=== PATIENT | male | born 1960 | race Caucasian/White ===

== ENCOUNTER 2019-06-28 14:38 | Emergency (ER) | payer BC ==
[2019-06-28 14:47] VITALS: TEMP 98
[2019-06-28] MEDS ORDERED: DIPH,PERTUS(ACELL)TETVAC-LF 0.5 ML VIAL IM ONE (14:48)
[2019-06-28] MEDS ORDERED: WATER FOR IRRIG, STERILE 1,000 ML BTL IRRIGATION ONE (14:53)
--- NOTE | 2019-06-28 15:22 | XR ---
EXAMINATION TYPE: XR finger LT DATE OF EXAM: 06/28/2019 CLINICAL HISTORY: pain TECHNIQUE: 3 views of the third left digit are submitted. COMPARISON: None FINDINGS: No displaced fracture is seen with certainty. Joint spaces are well-preserved. Correlate for soft tissue injury. IMPRESSION: No acute displaced fracture or dislocation.
[2019-06-28] MEDS ORDERED: LIDOCAINE 1% INJ 10MG/ML (20 ML MDV) SQ ONE (16:06)
[2019-06-28] MEDS ORDERED: ACET/COD 300 MG/30 MG STARTER PACK 6 TAB BTL PO STA (16:06)
[2019-06-28] MEDS ORDERED: IBUPROFEN 600 MG TAB PO STA (16:06)
--- NOTE | 2019-06-28 16:28 | ED ---
Animal Bite HPI - General Chief Complaint: Animal Bite Stated Complaint: dog bite on finger Time Seen by Provider: 06/28/19 14:48 Source: patient Mode of arrival: ambulatory Limitations: no limitations - History of Present Illness Initial Comments: 59-year-old male patient presents to the emergency department today for evaluation of dog bite to the left middle finger. Patient states that he was breaking up a fight between his 2 dogs when one bit him. Patient states he is unable to get it to stop bleeding site presented here for further evaluation. He denies any difficulty with range of motion to the finger. Denies numbness or tingling. Denies any other injuries. Denies use of anticoagulants or antiplatelet medications. He is unsure when his last tetanus vaccine was administered. Patient denies any headache, neck pain, back pain, chest pain, shortness of breath, dizziness, weakness, abdominal pain, nausea, vomiting, or difficulties with bowel movements or urination. - Related Data Previous Rx's Medication Instructions Recorded Amoxic-Pot Clav 875-125Mg 1 tab PO Q12HR #14 tablet 06/28/19 [Augmentin 875-125] Allergies Allergy/AdvReac Type Severity Reaction Status Date / Time No Known Allergies Allergy Verified 06/28/19 14:45 Review of Systems ROS Statement: Those systems with pertinent positive or pertinent negative responses have been documented in the HPI. ROS Other: All systems not noted in ROS Statement are negative. Past Medical History Past Medical History: No Reported History History of Any Multi-Drug Resistant Organisms: None Reported Past Surgical History: No Surgical Hx Reported Past Psychological History: No Psychological Hx Reported Smoking Status: Never smoker Past Alcohol Use History: None Reported Past Drug Use History: None Reported General Exam Limitations: no limitations General appearance: alert, in no apparent distress, other (This is a well- developed, well-nourished adult male patient in no acute distress. Vital signs upon presentation are temperature 98.0F, pulse 68, respirations 17, blood pressure 145/88, pulse ox 97% on room air.) Eye exam: Present: normal appearance, PERRL, EOMI. Absent: scleral icterus, conjunctival injection, periorbital swelling ENT exam: Present: normal exam, normal oropharynx, mucous membranes moist Respiratory exam: Present: normal lung sounds bilaterally. Absent: respiratory distress, wheezes, rales, rhonchi, stridor Cardiovascular Exam: Present: regular rate, normal rhythm, normal heart sounds. Absent: systolic murmur, diastolic murmur, rubs, gallop, clicks Extremities exam: Present: full ROM, normal capillary refill, other (3cm laceration to the palmar surface of the left middle finger. Active bleeding noted. There is full range of motion. Skin is otherwise pink, warm, dry. Cap refills less than 3 seconds. Radial pulses 2+ and equal bilaterally.). Absent: tenderness, pedal edema, joint swelling, calf tenderness Neurological exam: Present: alert, oriented X3, CN II-XII intact Psychiatric exam: Present: normal affect, normal mood Skin exam: Present: warm, dry, intact, normal color. Absent: rash Course Vital Signs 06/28/19 06/28/19 14:42 16:58 Temperature 98.0 F Pulse Rate 68 56 L Respiratory 17 18 Rate Blood Pressure 145/88 155/90 O2 Sat by Pulse 97 98 Oximetry Procedures - Laceration Laceration #1 Consent Obtained: verbal consent Indication: laceration Site: hand (Left middle finger) Size (cm): 3 Description: linear Depth: simple, single layer Anesthetic Used: lidocaine 1% Anesthesia Technique: local infiltration Amount (mls): 3 Pre-repair: irrigated extensively Type of Sutures: nylon Size of Sutures: 5-0 Number of Sutures: 3 Technique: simple, interrupted (Loosely approximated) Patient Tolerated Procedure: well, no complications Medical Decision Making - Medical Decision Making 59-year-old male patient presented to the emergency department today for evaluation of laceration to the left middle finger. This is caused from a dog bite. States his doctor up-to-date on her immunizations. Patient had good range of motion and good neurovascular status. Laceration was repaired, 3 loose sutures for approximation purposes are placed. We did start Augmentin. Updated his tetanus shot. X-ray showed no foreign body or fracture. He'll be discharged to follow-up with his primary care physician for recheck in 1-2 days. He is instructed to return in 7 days have the stitches removed. Return parameters were discussed in detail. He verbalizes understanding and agrees with this plan. - Radiology Data Radiology results: report reviewed, image reviewed X-ray of the left middle finger was obtained. Report was reviewed in its entirety. Impression by Dr. Fregoli shows no acute displaced fracture or dislocation. Disposition Clinical Impression: Dog bite of finger Disposition: HOME SELF-CARE Condition: Good Instructions (If sedation given, give patient instructions): Animal Bite (ED) Additional Instructions: Return in 7 days to have the stitches removed. Complete antibiotic prescription in full. Follow up with your primary care physician for recheck in 1-2 days. Return to the emergency department for any new, worsening, or concerning symptoms. Prescriptions: Amoxic-Pot Clav 875-125Mg [Augmentin 875-125] 1 tab PO Q12HR #14 tablet Is patient prescribed a controlled substance at d/c from ED?: No Referrals: None,Stated [Primary Care Provider] - 1-2 days
[2019-06-28 17:00] VITALS: BP 155/90; PULSE 56; RESP 18
== END 2019-06-28 16:58 | disposition home or self-care (01) ==
LOC: EC 14:38
DX: S61.253A Open bite of left middle finger without damage to nail, initial encounter (principal); S61.213A Laceration without foreign body of left middle finger without damage to nail, initial encounter; Z23 Encounter for immunization; W54.0XXA Bitten by dog, initial encounter; Y93.89 Activity, other specified
CPT/HCPCS: 73140; 90715; 90471; 99283; 12002; J2001

== ENCOUNTER 2019-10-24 13:51 | Emergency (ER) | payer BC, OTHER ==
[2019-10-24 14:14] VITALS: RESP 18
--- NOTE | 2019-10-24 14:25 | ED ---
General Adult HPI <Josue Hays P - Last Filed: 10/24/19 16:30> - General Source: patient, EMS, RN notes reviewed, old records reviewed Mode of arrival: EMS Limitations: no limitations <Dario Jon - Last Filed: 10/24/19 16:59> - General Chief complaint: Head Injury Stated complaint: IHS-head injury - History of Present Illness Initial comments: This is a 59-year-old male who states he was working on a semitruck tire when it blew up in his face. Patient states his glasses got pushed back into his head and he has a laceration just above his nose on his forehead almost center but a little to the right. Patient has 3 and half centimeter laceration. Patient states he did not lose consciousness he was not days. Patient denies any neck pain. Patient denies any other injury besides cut his face however he has some swelling to the left eyelid. Patient denies any pain in his eye patient denies any blurred vision. (Dario Jon) - Related Data Home Medications Medication Instructions Recorded Confirmed No Known Home Medications 10/24/19 10/24/19 Allergies Allergy/AdvReac Type Severity Reaction Status Date / Time No Known Allergies Allergy Verified 10/24/19 16:18 Review of Systems ROS Other: All systems not noted in ROS Statement are negative. <Jsoue Hays P - Last Filed: 10/24/19 16:30> ROS Other: All systems not noted in ROS Statement are negative. <Dario Jon - Last Filed: 10/24/19 16:59> ROS Statement: Those systems with pertinent positive or pertinent negative responses have been documented in the HPI. Past Medical History Past Medical History: No Reported History History of Any Multi-Drug Resistant Organisms: None Reported Past Surgical History: No Surgical Hx Reported Past Psychological History: No Psychological Hx Reported Smoking Status: Never smoker Past Alcohol Use History: None Reported Past Drug Use History: None Reported <Dario Jon - Last Filed: 10/24/19 16:59> General Exam Limitations: no limitations <Dario Jon - Last Filed: 10/24/19 16:59> - General Exam Comments Initial Comments: GENERAL: Patient is well-developed and well-nourished. Patient is nontoxic and well- hydrated and is in mild distress. ENT: Neck is soft and supple. No significant lymphadenopathy is noted. Oropharynx is clear. Moist mucous membranes. Neck has full range of motion without eliciting any pain. EYES: The sclera were anicteric and conjunctiva were pink and moist. Extraocular movements were intact and pupils were equal left pupil slightly larger than the right and sluggishly reactive. There is also conjunctival injection in the left eye.. Eyelids were unremarkable. PULMONARY: Unlabored respirations. Good breath sounds bilaterally. No audible rales rhonchi or wheezing was noted. CARDIOVASCULAR: There is a regular rate and rhythm without any murmurs gallops or rubs. ABDOMEN: Soft and nontender with normal bowel sounds. No palpable organomegaly was noted. There is no palpable pulsatile mass. SKIN: Patient has horizontal laceration on his forehead just above his nose measuring about 3.5 cm. Patient has some ecchymosis to the left upper eyelid. NEUROLOGIC: Patient is alert and oriented x3. Cranial nerves II through XII are grossly intact. Motor and sensory are also intact. Normal speech, volume and content. Symmetrical smile. MUSCULOSKELETAL: Normal extremities with adequate strength and full range of motion. No lower extremity swelling or edema. No calf tenderness. LYMPHATICS: No significant lymphadenopathy is noted PSYCHIATRIC: Normal psychiatric evaluation. (Dario Jon) Course Vital Signs 10/24/19 10/24/19 14:01 16:00 Temperature 98.2 F Pulse Rate 68 51 L Respiratory 18 18 Rate Blood Pressure 137/79 141/85 O2 Sat by Pulse 97 94 L Oximetry Procedures - Laceration Laceration #1 Consent Obtained: verbal consent Indication: laceration Site: face Size (cm): 4 Description: irregular Anesthetic Used: lidocaine 1% Anesthesia Technique: local infiltration Amount (mls): 4 Pre-repair: wound explored, irrigated extensively (with saline pressure irrigation), deep structures intact Type of Sutures: nylon Size of Sutures: 5-0 Number of Sutures: 7 Technique: simple, interrupted Patient Tolerated Procedure: well, no complications <Josue Hays - Last Filed: 10/24/19 16:30> Medical Decision Making <Dario Jon - Last Filed: 10/24/19 16:59> - Medical Decision Making CT of the head and neck showed no acute abnormality. CT of the orbit showed no acute abnormality. Patient still had slightly sluggish light reflex in the left I spoke with ophthalmology Dr. Brooks and he agreed to see the patient 9:00 in the morning and patient agreed to see him. Patient at this point has no eye pain he has no visual complaints (Dario Jon) Disposition <Josue Hays - Last Filed: 10/24/19 16:30> Is patient prescribed a controlled substance at d/c from ED?: No Time of Disposition: 16:40 <Dario Jon - Last Filed: 10/24/19 16:59> Clinical Impression: Forehead laceration, Eye trauma Disposition: HOME SELF-CARE Condition: Good Instructions (If sedation given, give patient instructions): Laceration (ED) Additional Instructions: Patient should follow-up with Dr. Brooks at 9 AM in the morning Referrals: None,Stated [Primary Care Provider] - 1-2 days
--- NOTE | 2019-10-24 15:50 | CT ---
EXAMINATION TYPE: CT brain cspine wo con, CT orbits wo con DATE OF EXAM: 10/24/2019 COMPARISON: NONE HISTORY: Traumatic injury with left eye pain, headache, and neck pain. CT DLP: 1500 mGycm. Automated Exposure Control for Dose Reduction was Utilized. TECHNIQUE: CT scan of the head, orbits, and cervical spine are all performed without contrast. FINDINGS: There is no acute intracranial hemorrhage or midline shift identified. Mild symmetric solomon ateral frontal lobe atrophy. No hydrocephalus. Garcia-white matter differentiation is maintained. The c alvarium is intact. There is mild to moderate asymmetric left-sided preseptal fluid or hematoma extending superiorly over the supraorbital region and anteriorly towards the midline. Orbital floors and hutchison are intact. The globes are intact bilaterally. Intraconal fat is preserved. Inferior extension over the left maxilla ry sinus anterior wall was noted. No acute displaced facial bone fracture clearly seen. There is acute on chronic paranasal sinus disea se with areas of mucosal thickening bilateral sphenoid ethmoid and frontal sinuses and patchy opacifi cation along with dependent fluid bilateral ethmoid and inferior frontal sinuses with relative sparin g of the bilateral maxillary sinuses. Cervical spine is visualized in its entirety from C1 through upper thoracic levels and demonstrates s light grade 1 retrolisthesis C5 on C6 without evidence of acute fracture or dislocation. Prevertebra l soft tissue appears within normal limits. The C1-C2 articulation is within normal limits on the co bernard images. Mild to moderate disc space narrowing and anterior spurring C5-C6 level. Mild disc spa ce narrowing C6-C7 level. Prominent anterior spur C7-T1 level. Spinal canal grossly preserved. Axial images show normal-sized thyroid and lung apices clear without pneumothorax. IMPRESSION: 1. There is no acute fracture or dislocation evident in the cervical spine. 2. No acute intracranial hemorrhage or midline shift is seen. 3. Small to moderate preseptal hematoma without orbital fracture or postseptal involvement. 4. Incidental acute on chronic paranasal sinus disease.
[2019-10-24] MEDS ORDERED: LIDOCAINE 1% INJ 10MG/ML (20 ML MDV) SQ ONE (16:08)
[2019-10-24 17:25] VITALS: BP 148/92; PULSE 77; TEMP 98
== END 2019-10-24 17:25 | disposition home or self-care (01) ==
LOC: EC 13:51
DX: S01.81XA Laceration without foreign body of other part of head, initial encounter (principal); W22.8XXA Striking against or struck by other objects, initial encounter; Y92.69 Other specified industrial and construction area as the place of occurrence of the external cause; Y99.0 Civilian activity done for income or pay
CPT/HCPCS: 72125; 70450; 70480; 99284; 12013; J2001

== ENCOUNTER 2020-06-21 13:37 | Emergency (ER) | payer OTHER ==
--- NOTE | 2020-06-21 14:16 | ED ---
Lower Extremity Injury HPI - General Source: RN notes reviewed Limitations: no limitations <Lexx Dow - Last Filed: 06/21/20 14:15> <Wilfredo Boo - Last Filed: 06/21/20 16:21> - General Stated Complaint: IHS-leg injury Time Seen by Provider: 06/21/20 14:12 - History of Present Illness Initial Comments: This is a 60-year-old male presents emergency Department chief complaint of left leg injury. Patient states he was getting out of a truck states that he hit his solo on the rocker panel of truck. Patient states that he is seen at initial ulcer secondary to increased swelling. Patient was sent over here to rule out compartment syndrome. He states she's not in extreme pain, states it is only area swelling at the site of injury. Denies any paresthesias. No discoloration. (Lexx Dow) Patient sent to the emergency department after injured the left leg. He was struck in the leg. He has no paresthesias. He has no weakness. He has no lightheadedness. He has no trouble walking. He denies any other injuries. He has very minor pain. He states the swelling is already going down. He has taken no pain medicine prior to arrival. (Wilfredo Boo) - Related Data Home Medications Medication Instructions Recorded Confirmed No Known Home Medications 10/24/19 10/24/19 Allergies Allergy/AdvReac Type Severity Reaction Status Date / Time No Known Allergies Allergy Verified 06/21/20 14:17 Review of Systems ROS Other: All systems not noted in ROS Statement are negative. <Lexx Dow - Last Filed: 06/21/20 14:15> ROS Other: All systems not noted in ROS Statement are negative. <Wilfredo Boo - Last Filed: 06/21/20 16:21> ROS Statement: Those systems with pertinent positive or pertinent negative responses have been documented in the HPI. Past Medical History Past Medical History: No Reported History History of Any Multi-Drug Resistant Organisms: None Reported Past Surgical History: No Surgical Hx Reported Past Psychological History: No Psychological Hx Reported Smoking Status: Never smoker Past Alcohol Use History: None Reported Past Drug Use History: None Reported <Lexx Dow - Last Filed: 06/21/20 14:15> General Exam General appearance: alert, in no apparent distress Head exam: Present: atraumatic, normocephalic, normal inspection Cardiovascular Exam: Present: regular rate, normal rhythm, normal heart sounds. Absent: systolic murmur, diastolic murmur, rubs, gallop, clicks Extremities exam: Present: other (Left lower leg anterior solo there is small abrasion, there is area swelling which appears to be hematoma, This soft nontender, leg is soft nontender except over the area of swelling, neurovascular intact) <Lexx Dwo - Last Filed: 06/21/20 14:15> Limitations: no limitations General appearance: alert, in no apparent distress Head exam: Present: atraumatic, normocephalic, normal inspection Eye exam: Present: normal appearance, PERRL, EOMI. Absent: scleral icterus, conjunctival injection, periorbital swelling ENT exam: Present: normal exam, mucous membranes moist Neck exam: Present: normal inspection. Absent: tenderness, meningismus, lymphadenopathy Respiratory exam: Present: normal lung sounds bilaterally. Absent: respiratory distress, wheezes, rales, rhonchi, stridor Cardiovascular Exam: Present: regular rate, normal rhythm, normal heart sounds. Absent: systolic murmur, diastolic murmur, rubs, gallop, clicks GI/Abdominal exam: Present: soft, normal bowel sounds. Absent: distended, tenderness, guarding, rebound, rigid Extremities exam: Present: normal inspection, full ROM, normal capillary refill. Absent: tenderness, pedal edema, joint swelling, calf tenderness Back exam: Present: normal inspection Neurological exam: Present: alert, oriented X3, CN II-XII intact Psychiatric exam: Present: normal affect, normal mood Skin exam: Present: other (Small abrasion left leg) <Wilfredo Boo - Last Filed: 06/21/20 16:21> Course Vital Signs 06/21/20 14:15 Temperature 97.9 F Pulse Rate 55 L Respiratory 20 Rate Blood Pressure 152/85 O2 Sat by Pulse 96 Oximetry Medical Decision Making <Wilfredo Boo - Last Filed: 06/21/20 16:21> - Medical Decision Making Patient presents with left leg injury. X-rays are negative. He has excellent distal pulses. There is no evidence of arterial deficiency. There is no evidence of venous occlusion. He has no calf swelling or tenderness. There is no evidence to suggest compartment syndrome. Patient is stable for discharge. (Wilfredo Boo) Disposition <Lexx Dow - Last Filed: 06/21/20 14:15> Is patient prescribed a controlled substance at d/c from ED?: No <Wilfredo Boo - Last Filed: 06/21/20 16:21> Clinical Impression: Contusion, Abrasion Disposition: HOME SELF-CARE Condition: Good Instructions (If sedation given, give patient instructions): Abrasion (ED), Contusion in Adults (ED) Referrals: None,Stated [Primary Care Provider] - 1-2 days
--- NOTE | 2020-06-21 15:59 | XR ---
EXAMINATION TYPE: XR tibia fibula LT DATE OF EXAM: 06/21/2020 Comparison: None Clinical History: 60-year-old male injury, mid leg pain Findings: There is some reticulation in the subcutaneous adipose layer of the mid leg. No acute fracture. Impression: Subcutaneous soft tissue swelling noted. No acute fracture seen.
[2020-06-21 16:34] VITALS: BP 152/93; PULSE 57; RESP 18; TEMP 98.5
== END 2020-06-21 16:33 | disposition home or self-care (01) ==
LOC: EC 13:37
DX: S80.12XA Contusion of left lower leg, initial encounter (principal); W22.8XXA Striking against or struck by other objects, initial encounter
CPT/HCPCS: 99283

== ENCOUNTER → 2020-09-30 | Outpatient (CLI) | payer BC ==
--- NOTE | 2020-10-01 15:37 | CTL ---
EXAMINATION TYPE: CT Low Dose Lung DATE OF EXAM ORDERED: 09/30/2020 HISTORY: Personal tobacco use. Lung cancer screening CT DLP: 89.[address] CTDI: 2.7 mGy Automated exposure control for dose reduction was used. SCREENING VISIT: Initial COMPARISON: High-resolution CT chest 04/20/2012 TECHNIQUE: Low dose computed tomography scan was performed through the chest at 1 mm thick sections a nd reconstructed images in the coronal plane at [address] DIAGNOSTIC QUALITY: Satisfactory FINDINGS: LUNG NODULES: None. LUNGS: COPD: Severity: None Fibrosis: Severity: None Lymph nodes: None Other findings: None RIGHT PLEURAL SPACE: Effusion: None Calcification: None Thickening: None Pneumothorax: None LEFT PLEURAL SPACE: Effusion: None Calcification: None Thickening: None Pneumothorax: None HEART: Heart Size: Normal Coronary calcification: Minimal Pericardial effusion: None OTHER FINDINGS: Upper abdomen: Normal Bony thorax: Normal Supraclavicular region: Normal Other: Ascending thoracic aorta at the level the main pulmonary artery measures 3.2 cm. The main pul monary artery at the bifurcation measures 2.6 cm. IMPRESSION: 1. Normal low-dose CT chest FOLLOW UP CT CHEST RECOMMENDATION: Follow-up low-dose CT chest one year CT LUNG RAD: 1
== END | disposition home or self-care (01) ==
LOC: RADCTMAIN 15:02
PROVIDERS: ATTEND Family Medicine
DX: Z09 Encounter for follow-up examination after completed treatment for conditions other than malignant neoplasm (principal); Z87.891 Personal history of nicotine dependence
CPT/HCPCS: 71271

== ENCOUNTER 2020-12-30 06:29 | Day surgery (SDC) | payer BC ==
[2020-12-26 12:13] VITALS: BMI 34.4
[~2020-12-30 06:29] MED LIST: LACTATED RINGERS 1,000 ML IV SCH; LIDOCAINE 1% (10MG/ML) FOR IV START INTRADERMA PRN
[2020-12-30 06:44] VITALS: TEMP 97.8
[2020-12-30] MEDS ORDERED: LACTATED RINGERS 1,000 ML IV ONE (06:44)
[2020-12-30] MEDS ORDERED: PROPOFOL 10 MG/ML 20 ML VIAL IV ONE (07:35)
--- NOTE | 2020-12-30 07:35 | P.GSHP ---
History of Present Illness H&P Date: 12/30/20 CHIEF COMPLAINT: Colon screen HISTORY OF PRESENT ILLNESS: The patient is a 60-year-old male who presents for colon screen. Lower endoscopy was offered for further evaluation and management. PAST MEDICAL HISTORY: Please see list. PAST SURGICAL HISTORY: Please see list. MEDICATIONS: Please see list. ALLERGIES: Please see list. SOCIAL HISTORY: No illicit drug use FAMILY HISTORY: No reports of Crohn disease or ulcerative colitis. REVIEW OF ORGAN SYSTEMS: CONSTITUTIONAL: No reports of fevers or chills. PHYSICAL EXAM: VITAL SIGNS: Stable GENERAL: Well-developed pleasant in no acute distress. HEENT: No scleral icterus. Extraocular movements grossly intact. Moist buccal mucosa. NECK: Supple without lymphadenopathy. CHEST: Unlabored respirations. Equal bilateral excursions. CARDIOVASCULAR: Regular rate and rhythm. Distal 2+ pulses. ABDOMEN: Soft, nontender, nondistended. MUSCULOSKELETAL: No clubbing, cyanosis, or edema. ASSESSMENT: 1. Colon screen. PLAN: 1. Recommend proceeding with a lower endoscopy Past Medical History Past Medical History: No Reported History History of Any Multi-Drug Resistant Organisms: None Reported Past Surgical History: Orthopedic Surgery Additional Past Surgical History / Comment(s): RT HEEL SX AGE 18 Past Anesthesia/Blood Transfusion Reactions: No Reported Reaction Smoking Status: Current every day smoker - Past Family History Sister(s) Family Medical History: Cancer Additional Family Medical History / Comment(s): COLON Mother Family Medical History: Cancer Additional Family Medical History / Comment(s): THROAT Medications and Allergies Home Medications Medication Instructions Recorded Confirmed Type No Known Home Medications 10/24/19 12/26/20 History Allergies Allergy/AdvReac Type Severity Reaction Status Date / Time No Known Allergies Allergy Verified 12/26/20 12:07 Surgical - Exam Vital Signs Temp Pulse Resp BP Pulse Ox 97.8 F 88 18 195/89 96 12/30/20 06:43 12/30/20 06:43 12/30/20 06:43 12/30/20 06:43 12/30/20 06:43
--- NOTE | 2020-12-30 08:13 | P.PCN ---
Date of Procedure: 12/30/20 Description of Procedure: PREOPERATIVE DIAGNOSIS: Family history colon cancer, sister Colonoscopy screening, first POSTOPERATIVE DIAGNOSIS: Family history colon cancer, sister Colonoscopy screening, first Tubular adenoma ascending colon Tubular adenoma transverse colon Tubular adenoma sigmoid colon Internal hemorrhoids, grade 2 OPERATION: Colonoscopy to the ileocecal valve and appendiceal orifice, cecum Colonoscopy with hot snare polypectomy Colonoscopy with cold forceps biopsy SURGEON: Kami Martinez MD. ANESTHESIA: MAC. INDICATIONS: The patient is an 60-year-old male who presents family history of colon cancer in sister. This is his first colonoscopy. Benefits and risks were described an d informed consent was obtained. DESCRIPTION OF PROCEDURE: The patient had undergone Sutab prep. The patient had been brought into the operating room and laid in the left lateral decubitus position. After adequate intravenous sedation, the rectum was examined with 2% lidocaine jelly. The prostate was enlarged. External hemorrhoids were encountered. The rectal tone was within normal limits. No lesions were palpated in the rectal vault. An Olympus colonoscope was advanced until the cecum, ileocecal valve and appendiceal orifice were clearly viewed. The prep was good. No sigmoid diverticulosis was encountered. Colonic polyps were found and removed. No evidence of focal colitis was found. Retroflexion of the scope demonstrated grade 2 internal hemorrhoids without active bleeding or inflammation. The colon was desufflated. The patient had tolerated the procedure well. Withdrawal time was over 6 minutes. FINDINGS: Aronchick preparation quality scale 2 (1-5) Internal hemorrhoids, grade 2 External hemorrhoids, grade 2 Enlarged prostate. No arteriovenous malformations. Removal of 7 polyps: - Snare polypectomy 90 cm from the anal verge x 2, 5 mm to 7 mm tubulovillous adenoma polyp. - Snare polypectomy of distal ascending colon, 8 mm flat villous adenoma polyp with partial resection - Snare polypectomy at distal transverse colon 6 mm - Cold forceps biopsy at 20 cm from the anal verge, 4 mm polyp, sigmoid colon - Cold forceps biopsy at 15 cm x 2 from the anal verge, 3 to 5 mm polyp, sigmoid colon No focal colitis. RECOMMENDATIONS: 1. Given severity of tubular adenomas, recommend repeat colonoscopy 1 year, 2021 2. Recommend follow-up with urology Plan - Discharge Summary Discharge Rx Participant: No New Discharge Prescriptions: No Action No Known Home Medications Discharge Medication List No Known Home Medications 10/24/19 [History] Follow up Appointment(s)/Referral(s): Kami Martinez MD [STAFF PHYSICIAN] - 01/07/21 Patient Instructions/Handouts: Colorectal Polyps (DC) Activity/Diet/Wound Care/Special Instructions: Repeat colonoscopy one year, 2021 Discharge Disposition: HOME SELF-CARE
[2020-12-30 08:24] VITALS: RESP 16
[2020-12-30 08:26] VITALS: BP 146/88; PULSE 54
== END 2020-12-30 08:54 | disposition home or self-care (01) ==
LOC: ORWHC2ENDO 06:29
PROVIDERS: ATTEND Surgery Plastic and Reconstructive Surgery
DX: Z12.11 Encounter for screening for malignant neoplasm of colon (principal); D12.2 Benign neoplasm of ascending colon; D12.3 Benign neoplasm of transverse colon; D12.5 Benign neoplasm of sigmoid colon; F17.200 Nicotine dependence, unspecified, uncomplicated; K64.8 Other hemorrhoids; Z80.0 Family history of malignant neoplasm of digestive organs; G47.30 Sleep apnea, unspecified; Z87.442 Personal history of urinary calculi
CPT/HCPCS: 45380; 45385; 88305; J2704

== ENCOUNTER 2022-01-22 07:33 | Day surgery (SDC) | payer BC ==
[2022-01-20 15:58] VITALS: BMI 35.2
[2022-01-22] MEDS ORDERED: LIDOCAINE 1% (10MG/ML) FOR IV START INTRADERMA PRN (07:43)
[2022-01-22] MEDS ORDERED: LACTATED RINGERS 1,000 ML IV SCH (07:43)
[2022-01-22 07:56] VITALS: RESP 16; TEMP 97.6
--- NOTE | 2022-01-22 08:47 | P.GSHP ---
History of Present Illness H&P Date: 01/22/22 CHIEF COMPLAINT: Colon screen HISTORY OF PRESENT ILLNESS: The patient is a 61-year-old male who presents for colon screen. Lower endoscopy was offered for further evaluation and management. PAST MEDICAL HISTORY: Please see list. PAST SURGICAL HISTORY: Please see list. MEDICATIONS: Please see list. ALLERGIES: Please see list. SOCIAL HISTORY: No illicit drug use FAMILY HISTORY: No reports of Crohn disease or ulcerative colitis. REVIEW OF ORGAN SYSTEMS: CONSTITUTIONAL: No reports of fevers or chills. PHYSICAL EXAM: VITAL SIGNS: Stable GENERAL: Well-developed pleasant in no acute distress. HEENT: No scleral icterus. Extraocular movements grossly intact. Moist buccal mucosa. NECK: Supple without lymphadenopathy. CHEST: Unlabored respirations. Equal bilateral excursions. CARDIOVASCULAR: Regular rate and rhythm. Distal 2+ pulses. ABDOMEN: Soft, nontender, nondistended. MUSCULOSKELETAL: No clubbing, cyanosis, or edema. ASSESSMENT: 1. Colon screen. PLAN: 1. Recommend proceeding with a lower endoscopy Past Medical History Past Medical History: Hypertension Additional Past Medical History / Comment(s): hx colon polyps,bronchitis Dec 2021,steroids Dec 2021 History of Any Multi-Drug Resistant Organisms: None Reported Past Surgical History: Orthopedic Surgery Additional Past Surgical History / Comment(s): RT HEEL SX AGE 18 Past Anesthesia/Blood Transfusion Reactions: No Reported Reaction Smoking Status: Current every day smoker - Past Family History Sister(s) Family Medical History: Cancer Additional Family Medical History / Comment(s): COLON Mother Family Medical History: Cancer Additional Family Medical History / Comment(s): THROAT Medications and Allergies Home Medications Medication Instructions Recorded Confirmed Type Olmesartan Medoxomil 40 mg PO QAM 01/20/22 01/20/22 History Allergies Allergy/AdvReac Type Severity Reaction Status Date / Time No Known Allergies Allergy Verified 01/22/22 07:50 Surgical - Exam Vital Signs Temp Pulse Resp BP Pulse Ox 97.6 F 62 16 127/74 96 01/22/22 07:55 01/22/22 07:55 01/22/22 07:55 01/22/22 07:55 01/22/22 07:55
[2022-01-22] MEDS ORDERED: PROPOFOL 10 MG/ML 20 ML VIAL IV ONE (08:50)
[2022-01-22 09:44] VITALS: BP 108/77; PULSE 55
--- NOTE | 2022-01-22 10:03 | P.PCN ---
Date of Procedure: 01/22/22 Description of Procedure: PREOPERATIVE DIAGNOSIS: Personal history of colon polyps POSTOPERATIVE DIAGNOSIS: Tubular adenoma at appendiceal orifice Tubular adenoma ascending colon Internal hemorrhoids, grade 2 OPERATION: Colonoscopy to the ileocecal valve and appendiceal orifice, cecum Colonoscopy with hot snare polypectomy Colonoscopy with injection of Susanne ink, 1 mL, ascending colon SURGEON: Kami Martinez MD. ANESTHESIA: MAC. INDICATIONS: The patient is an 61-year-old male who presents personal history of colon polyps. Last colonoscopy 5 years. Benefits and risks were described and informed consent was obtained. DESCRIPTION OF PROCEDURE: The patient had undergone Sutab prep. The patient had been brought into the operating room and laid in the left lateral decubitus position. After adequate intravenous sedation, the rectum was examined with 2% lidocaine jelly. The prostate was without nodularity. External hemorrhoids were encountered. The rectal tone was within normal limits. No lesions were palpated in the rectal vault. An Olympus colonoscope was advanced until the cecum, ileocecal valve and appendiceal orifice were clearly viewed. The prep was good. No large sigmoid diverticulosis was encountered. Colonic polyps were found and removed. Multiple passes performed at ascending colon with injection of Susanne ink. No evidence of focal colitis was found. Retroflexion of the scope demonstrated grade 2 internal hemorrhoids without active bleeding or inflammation. The colon was desufflated. The patient had tolerated the procedure well. Withdrawal time was over 6 minutes. FINDINGS: Aronchick preparation quality scale 2 (1-5) Internal hemorrhoids, grade 2 External hemorrhoids, grade 2 No arteriovenous malformations. No large sigmoid diverticulosis Removal of 2 polyps: - Snare polypectomy ascending colon, 14 mm flat villous adenoma with multiple passes, piecemeal resection - Snare polypectomy appendiceal orifice, 12 mm flat villous adenoma polyp, piecemeal resection Injection Susanne ink, ascending colon, 1 mL No focal colitis. RECOMMENDATIONS: Given severity of tubular adenomas, recommend repeat colonoscopy 1 year, 2022. Plan - Discharge Summary Discharge Rx Participant: No New Discharge Prescriptions: Continue Olmesartan Medoxomil 40 mg PO QAM Discharge Medication List Olmesartan Medoxomil 40 mg PO QAM 01/20/22 [History] Follow up Appointment(s)/Referral(s): Kami Martinez MD [STAFF PHYSICIAN] - 02/10/22 Patient Instructions/Handouts: Colorectal Polyps (GEN) Activity/Diet/Wound Care/Special Instructions: Repeat colonoscopy one year, 2022 Discharge Disposition: HOME SELF-CARE
== END 2022-01-22 10:40 | disposition home or self-care (01) ==
LOC: ORWHC2ENDO 07:33
PROVIDERS: ATTEND Surgery Plastic and Reconstructive Surgery
DX: Z12.11 Encounter for screening for malignant neoplasm of colon (principal); D12.2 Benign neoplasm of ascending colon; I10 Essential (primary) hypertension; F17.200 Nicotine dependence, unspecified, uncomplicated; K64.8 Other hemorrhoids; Z87.19 Personal history of other diseases of the digestive system
CPT/HCPCS: 88305; 45385; 45381; J2704

== ENCOUNTER 2022-12-20 10:21 | Emergency (ER) | payer BC ==
[2022-12-20 10:36] VITALS: TEMP 97
[2022-12-20] MEDS ORDERED: SODIUM CHLORIDE 0.9% 1,000 ML IV STA (10:45)
[2022-12-20] MEDS ORDERED: MORPHINE SULFATE 2 MG/ML SYRINGE IVP STA (10:45)
[2022-12-20] MEDS ORDERED: ONDANSETRON 4 MG/2 ML VIAL IVP STA (10:45)
[2022-12-20] MEDS ORDERED: KETOROLAC 15 MG/ML 1 ML VIAL IVP STA (10:45)
--- NOTE | 2022-12-20 10:54 | ED ---
SOB HPI - General Chief Complaint: Shortness of Breath Stated Complaint: ANGELA Time Seen by Provider: 12/20/22 10:34 Source: patient, RN notes reviewed Mode of arrival: ambulatory Limitations: no limitations - History of Present Illness Initial Comments: This is a 62-year-old male who presents to the emergency department for shortness of breath and abdominal pain. States that he's had increasing shortness of breath over the last week. He went to the emergency department in [place] when he was on vacation 4 days ago. States that when he was there he had blood work and a chest x-ray done revealing no irregular findings. However, states that symptoms have been getting worse. He feels like he cannot catch his breath and is working very hard to breathe. Denies any history of similar symptoms in the past. Also denies any history of any respiratory illnesses. He has not been experiencing chest pain. Additionally, patient has been experiencing increasing abdominal pain over the last week. He mentioned this in the emergency department in [place], however it was not as severe at that point, and no evaluation was done. This is primarily in the left lower quadrant. Reports associated nausea but no vomiting. States that he also has a sign ificant amount of belching while he tries to eat. Denies any fevers, chills, sore throat, cough, chest pain, palpitations, vomiting, diarrhea, back pain, or headaches. MD Complaint: shortness of breath - Related Data Home Medications Medication Instructions Recorded Confirmed Olmesartan Medoxomil 40 mg PO QAM 01/20/22 01/20/22 Previous Rx's Medication Instructions Recorded LORazepam [Ativan] 1 mg PO TID 3 Days #9 tab 12/20/22 Ondansetron Odt [Zofran Odt] 4 mg PO Q8HR PRN #20 tab 12/20/22 Pantoprazole [Protonix] 40 mg PO DAILY 14 Days #14 tab 12/20/22 Allergies Allergy/AdvReac Type Severity Reaction Status Date / Time No Known Allergies Allergy Verified 12/20/22 10:31 Review of Systems ROS Statement: Those systems with pertinent positive or pertinent negative responses have been documented in the HPI. ROS Other: All systems not noted in ROS Statement are negative. Past Medical History Past Medical History: Hypertension Additional Past Medical History / Comment(s): hx colon polyps,bronchitis Dec 2021,steroids Dec 2021 History of Any Multi-Drug Resistant Organisms: None Reported Past Surgical History: Orthopedic Surgery Additional Past Surgical History / Comment(s): RT HEEL SX AGE 18 Past Anesthesia/Blood Transfusion Reactions: No Reported Reaction Past Psychological History: No Psychological Hx Reported Smoking Status: Current every day smoker Past Alcohol Use History: None Reported Past Drug Use History: None Reported - Past Family History Sister(s) Family Medical History: Cancer Additional Family Medical History / Comment(s): COLON Mother Family Medical History: Cancer Additional Family Medical History / Comment(s): THROAT General Exam Limitations: no limitations General appearance: alert, in distress Head exam: Present: atraumatic, normocephalic, normal inspection Respiratory exam: Present: other (conversational dyspnea). Absent: wheezes, rales, rhonchi Cardiovascular Exam: Present: regular rate, normal rhythm, normal heart sounds. Absent: systolic murmur, diastolic murmur, rubs, gallop, clicks GI/Abdominal exam: Present: soft, tenderness (LLQ), normal bowel sounds. Absent: distended, guarding, rebound, rigid Neurological exam: Present: alert, oriented X3, CN II-XII intact Psychiatric exam: Present: normal affect, normal mood Skin exam: Present: warm, dry, intact, normal color. Absent: rash Course Vital Signs 12/20/22 12/20/22 12/20/22 10:31 10:44 10:45 Temperature 97 F L Pulse Rate 81 89 Respiratory 18 26 H 18 Rate Blood Pressure 115/83 123/69 O2 Sat by Pulse 98 97 Oximetry 12/20/22 12/20/22 12/20/22 11:00 11:30 11:40 Temperature Pulse Rate 76 69 57 L Respiratory 18 18 32 H Rate Blood Pressure 125/88 124/83 118/78 O2 Sat by Pulse 97 97 97 Oximetry 12/20/22 12/20/22 12/20/22 11:50 12:00 13:44 Temperature Pulse Rate 51 L 58 L Respiratory 41 H Rate Blood Pressure 118/78 118/78 O2 Sat by Pulse 97 Oximetry 12/20/22 12/20/22 13:52 15:30 Temperature Pulse Rate 57 L 80 Respiratory 18 Rate Blood Pressure 141/80 O2 Sat by Pulse 97 Oximetry Medical Decision Making - Medical Decision Making This is a 62-year-old male who presents to the emergency department for shortness of breath and abdominal pain. Was pt. sent in by a medical professional or institution? @ -No Did you speak to anyone other than the patient for history? @ -No Did you review nursing and triage notes? @ -Yes, and I agree, it is accurate with regards to the patient's symptoms. Were old charts reviewed? @ -No Differential Diagnosis? @ -Differential Dyspnea: Coronary syndrome, arrhythmia, tamponade, asthma, COPD, pulmonary embolism, pneumonia, pneumothorax, pulmonary effusion, anaphylaxis, diabetic ketoacidosis, flailed chest, pulmonary contusion, diaphragmatic rupture, anemia, ne uromuscular, this is not meant to be an all-inclusive list. -Differential Abdominal Pain Men: Appendicitis, cholecystitis, diverticulosis, ischemic bowel, pancreatitis, hepatitis, UTI, gastroenteritis, AAA, incarcerated hernia, bowel obstruction, constipation, inflammatory bowel, hepatitis, peptic ulcer disease, splenic infarction, perforated viscus, testicular torsion, this is not meant to be an all-inclusive list EKG interpreted by me (3pts min.)? @ -EKG interpreted by me demonstrating the following: Sinus rhythm. Ventricular rate 75 beats per minute, IA interval 138 ms, QRS duration 91 ms, QTC 398 ms. X-rays interpreted by me (1pt min.)? @ -Chest x-ray obtained, my interpretation identifies no localized c onsolidations or infiltrates. CT interpreted by me (1pt min.)? @ -CT angiogram of the chest obtained. My interpretation identifies no evidence of a pulmonary embolus. Computed tomography scan of the abdomen and pelvis obtained revealing no evidence of free air or a ureteral calculus. U/S interpreted by me (1pt. min.)? @ -Not obtained What testing was considered but not performed? (CT, X-rays, U/S, labs)? Why? @ -None What meds were considered but not given? Why? @ -None Did you discuss the management of the patient with other professionals? @ -No Did you reconcile home meds? @ -No Was smoking cessation discussed for >3mins.? @ -No Was critical care preformed (if so, how long)? @ -No Were there social determinants of health that impacted care today? How? (Homelessness, low income, unemployed, alcoholism, drug addiction, transportation, low edu. Level, literacy, decrease access to med. care, [facility], rehab)? @ -No Was there de-escalation of care discussed even if they declined? (Discuss DNR or withdrawal of care, Hospice)? @ -No What co-morbidities impacted this encounter? (DM, HTN, Smoking, COPD, CAD, Cancer, CVA, Hep., AIDS, mental health diagnosis, sleep apnea, morbid obesity)? @ -HTN Was patient admitted / discharged? @ -Discharged. Lab work obtained revealing leukocytosis with a white blood cell count of 14 and a lactic acid of 3.4. D-dimer was also elevated at 1.07. Chest x-ray revealed findings suggestive of atelectasis versus pulmonary edema. BNP however is 108. Given the elevated d-dimer as well as the patient's left lower quadrant pain with leukocytosis, CT angiogram of the chest as well as a computed tomography scan of the abdomen and pelvis was obtained. There was no evidence of a pulmonary embolism and the chest x-ray findings were not redemonstrated on the computed tomography scan. Computed tomography scan of the abdomen revealed possible mild colitis on the left side of the abdomen. Findings reviewed with the patient. The colitis may explain the leukocytosis and elevated lactic acid. The difficulty breathing was occurring intermittently. He did not have any symptoms with ambulation. He would occasionally be sitting in the room and all of a sudden develop conversational dyspnea. He was given a breathing treatment with no relief in symptoms. We discussed the possibility of this being related to anxiety or a panic attack. He was given a dose of Ativan and had significant improvement in symptoms. Abdominal pain and nausea were also well controlled in the emergency department and he was tolerating oral intake without difficulty. Patient was given a prescription for a few tablets of Ativan for management of these panic attacks causing severe conversational dyspnea, which he is advised to take sparingly, as well as Zofran for nausea and vomiting and pantoprazole for possible GERD. He was also given information for follow-up with gastroenterology to reevaluate ongoing GI symptoms of nausea and excessive belching when eating. He is also instructed to become reestablished with a primary care provider for further discussion and management of the dyspnea likely related to anxiety and panic attacks. Undiagnosed new problem with uncertain prognosis? @ -None Drug Therapy requiring intensive monitoring for toxicity (Heparin, Nitro, Insulin, Cardizem)? @ -None Were any procedures done? @ -None Diagnosis/symptom? @ -Anxiety, dyspnea, abdominal pain Acute, or Chronic, or Acute on Chronic? @ -Acute Uncomplicated (without systemic symptoms) or Complicated (systemic symptoms)? @ -Complicated Side effects of treatment? @ -None Exacerbation, Progression, or Severe Exacerbation] @ -Not applicable Poses a threat to life or bodily function? @ -All of the symptoms in general are having an impact on his ability to function. Return precautions reviewed in depth, the patient is instructed to return to the emergency department with any new, worsening, or concerning symptoms. Patient verbalized understanding. This case was discussed in detail with the attending ED physician, Dr. Putnam. Presentation, findings, and treatment plan discussed in detail as well. - Lab Data Result diagrams: 12/20/22 10:44 12/20/22 10:44 Lab Results 12/20/22 12/20/22 12/20/22 Range/Units 10:44 10:44 10:44 WBC 14.0 H (3.8-10.6) k/uL RBC 5.54 (4.30-5.90) m/uL Hgb 17.1 (13.0-17.5) gm/dL Hct 50.5 (39.0-53.0) % MCV 91.2 (80.0-100.0) fL MCH 30.9 (25.0-35.0) pg MCHC 33.9 (31.0-37.0) g/dL RDW 12.6 (11.5-15.5) % Plt Count 270 (150-450) k/uL MPV 7.2 Neutrophils % 80 % Lymphocytes % 13 % Monocytes % 6 % Eosinophils % 1 % Basophils % 0 % Neutrophils # 11.2 H (1.3-7.7) k/uL Lymphocytes # 1.8 (1.0-4.8) k/uL Monocytes # 0.8 (0-1.0) k/uL Eosinophils # 0.1 (0-0.7) k/uL Basophils # 0.1 (0-0.2) k/uL PT 10.3 (9.0-12.0) sec INR 1.0 (<1.2) APTT 24.0 (22.0-30.0) sec D-Dimer 1.07 H (<0.60) mg/L FEU Sodium 138 (137-145) mmol/L Potassium 4.2 (3.5-5.1) mmol/L Chloride 105 (98-107) mmol/L Carbon Dioxide 22 (22-30) mmol/L Anion Gap 11 mmol/L BUN 17 (9-20) mg/dL Creatinine 1.01 (0.66-1.25) mg/dL Est GFR (CKD-EPI)AfAm >90 (>60 ml/min/1.73 sqM) Est GFR (CKD-EPI)NonAf 80 (>60 ml/min/1.73 sqM) Glucose 107 H (74-99) mg/dL Lactic Ac Sepsis Rflx Plasma Lactic Acid Jose (0.7-2.0) mmol/L Calcium 9.5 (8.4-10.2) mg/dL Total Bilirubin 1.2 (0.2-1.3) mg/dL AST 41 (17-59) U/L ALT 67 H (4-49) U/L Alkaline Phosphatase 87 (38-126) U/L Troponin I (0.000-0.034) ng/mL NT-Pro-B Natriuret Pep 108 pg/mL Total Protein 7.4 (6.3-8.2) g/dL Albumin 4.3 (3.5-5.0) g/dL Urine Color Urine Appearance (Clear) Urine pH (5.0-8.0) Ur Specific [place] (1.001-1.035) Urine Protein (Negative) Urine Glucose (UA) (Negative) Urine Ketones (Negative) Urine Blood (Negative) Urine Nitrite (Negative) Urine Bilirubin (Negative) Urine Urobilinogen (<2.0) mg/dL Ur Leukocyte Esterase (Negative) Urine RBC (0-5) /hpf Urine WBC (0-5) /hpf Ur Squamous Epith Cells (0-4) /hpf Urine Mucus (None) /hpf Influenza Type A (PCR) (Not Detectd) Influenza Type B (PCR) (Not Detectd) RSV (PCR) (Not Detectd) SARS-CoV-2 (PCR) (Not Detectd) 12/20/22 12/20/22 12/20/22 Range/Units 10:44 10:44 10:44 WBC (3.8-10.6) k/uL RBC (4.30-5.90) m/uL Hgb (13.0-17.5) gm/dL Hct (39.0-53.0) % MCV (80.0-100.0) fL MCH (25.0-35.0) pg MCHC (31.0-37.0) g/dL RDW (11.5-15.5) % Plt Count (150-450) k/uL MPV Neutrophils % % Lymphocytes % % Monocytes % % Eosinophils % % Basophils % % Neutrophils # (1.3-7.7) k/uL Lymphocytes # (1.0-4.8) k/uL Monocytes # (0-1.0) k/uL Eosinophils # (0-0.7) k/uL Basophils # (0-0.2) k/uL PT (9.0-12.0) sec INR (<1.2) APTT (22.0-30.0) sec D-Dimer (<0.60) mg/L FEU Sodium (137-145) mmol/L Potassium (3.5-5.1) mmol/L Chloride (98-107) mmol/L Carbon Dioxide (22-30) mmol/L Anion Gap mmol/L BUN (9-20) mg/dL Creatinine (0.66-1.25) mg/dL Est GFR (CKD-EPI)AfAm (>60 ml/min/1.73 sqM) Est GFR (CKD-EPI)NonAf (>60 ml/min/1.73 sqM) Glucose (74-99) mg/dL Lactic Ac Sepsis Rflx Plasma Lactic Acid Jose 3.4 H* (0.7-2.0) mmol/L Calcium (8.4-10.2) mg/dL Total Bilirubin (0.2-1.3) mg/dL AST (17-59) U/L ALT (4-49) U/L Alkaline Phosphatase (38-126) U/L Troponin I <0.012 (0.000-0.034) ng/mL NT-Pro-B Natriuret Pep pg/mL Total Protein (6.3-8.2) g/dL Albumin (3.5-5.0) g/dL Urine Color Urine Appearance (Clear) Urine pH (5.0-8.0) Ur Specific [place] (1.001-1.035) Urine Protein (Negative) Urine Glucose (UA) (Negative) Urine Ketones (Negative) Urine Blood (Negative) Urine Nitrite (Negative) Urine Bilirubin (Negative) Urine Urobilinogen (<2.0) mg/dL Ur Leukocyte Esterase (Negative) Urine RBC (0-5) /hpf Urine WBC (0-5) /hpf Ur Squamous Epith Cells (0-4) /hpf Urine Mucus (None) /hpf Influenza Type A (PCR) Not Detected (Not Detectd) Influenza Type B (PCR) Not Detected (Not Detectd) RSV (PCR) Not Detected (Not Detectd) SARS-CoV-2 (PCR) Not Detected (Not Detectd) 12/20/22 12/20/22 Range/Units 10:50 11:47 WBC (3.8-10.6) k/uL RBC (4.30-5.90) m/uL Hgb (13.0-17.5) gm/dL Hct (39.0-53.0) % MCV (80.0-100.0) fL MCH (25.0-35.0) pg MCHC (31.0-37.0) g/dL RDW (11.5-15.5) % Plt Count (150-450) k/uL MPV Neutrophils % % Lymphocytes % % Monocytes % % Eosinophils % % Basophils % % Neutrophils # (1.3-7.7) k/uL Lymphocytes # (1.0-4.8) k/uL Monocytes # (0-1.0) k/uL Eosinophils # (0-0.7) k/uL Basophils # (0-0.2) k/uL PT (9.0-12.0) sec INR (<1.2) APTT (22.0-30.0) sec D-Dimer (<0.60) mg/L FEU Sodium (137-145) mmol/L Potassium (3.5-5.1) mmol/L Chloride (98-107) mmol/L Carbon Dioxide (22-30) mmol/L Anion Gap mmol/L BUN (9-20) mg/dL Creatinine (0.66-1.25) mg/dL Est GFR (CKD-EPI)AfAm (>60 ml/min/1.73 sqM) Est GFR (CKD-EPI)NonAf (>60 ml/min/1.73 sqM) Glucose (74-99) mg/dL Lactic Ac Sepsis Rflx Y Plasma Lactic Acid Jose (0.7-2.0) mmol/L Calcium (8.4-10.2) mg/dL Total Bilirubin (0.2-1.3) mg/dL AST (17-59) U/L ALT (4-49) U/L Alkaline Phosphatase (38-126) U/L Troponin I (0.000-0.034) ng/mL NT-Pro-B Natriuret Pep pg/mL Total Protein (6.3-8.2) g/dL Albumin (3.5-5.0) g/dL Urine Color Yellow Urine Appearance Clear (Clear) Urine pH 7.0 (5.0-8.0) Ur Specific [place] >1.050 H (1.001-1.035) Urine Protein 1+ H (Negative) Urine Glucose (UA) Negative (Negative) Urine Ketones Negative (Negative) Urine Blood Negative (Negative) Urine Nitrite Negative (Negative) Urine Bilirubin Negative (Negative) Urine Urobilinogen <2.0 (<2.0) mg/dL Ur Leukocyte Esterase Negative (Negative) Urine RBC 4 (0-5) /hpf Urine WBC <1 (0-5) /hpf Ur Squamous Epith Cells <1 (0-4) /hpf Urine Mucus Few H (None) /hpf Influenza Type A (PCR) (Not Detectd) Influenza Type B (PCR) (Not Detectd) RSV (PCR) (Not Detectd) SARS-CoV-2 (PCR) (Not Detectd) - Radiology Data Radiology results: report reviewed, image reviewed Disposition Clinical Impression: Dyspnea, Abdominal pain, Nausea, Anxiety Disposition: HOME SELF-CARE Instructions (If sedation given, give patient instructions): Abdominal Pain (ED) Additional Instructions: Return to the emergency department with any new, worsening, or concerning symptoms. You can try taking the Ativan up to 3 times a day whenever you feel anxious or short of breath. Try starting with half a tablet to see if that is effective and try to take this sparingly. You can take the Zofran up to every 8 hours as needed for nausea and vomiting. Take the Protonix once daily for at least 2 weeks. Take this 30-60 minutes before eating or taking any other medication. If this is effective for your nausea and belching, you can also purchase this [id number]. Contact gastroenterology as listed below for a follow-up appointment regarding your ongoing gastrointestinal symptoms. Also try to become established with a new primary care provider. Prescriptions: LORazepam [Ativan] 1 mg PO TID 3 Days #9 tab Pantoprazole [Protonix] 40 mg PO DAILY 14 Days #14 tab Ondansetron Odt [Zofran Odt] 4 mg PO Q8HR PRN #20 tab PRN Reason: Nausea And Vomiting Is patient prescribed a controlled substance at d/c from ED?: Yes When asked, does pt state using other controlled substances?: No If prescribed controlled substance>3 days was MAPS reviewed?: Prescribed <3 Days Referrals: None,Stated [Primary Care Provider] - 1-2 days Cindy Junior MD [STAFF PHYSICIAN] - 1-2 days Forms: Area PCPs
[2022-12-20 11:18] LABS: Basophils # (A) 0.1 k/uL (0-0.2); Basophils % (A) 0 %; Eosinophils # (A) 0.1 k/uL (0-0.7); Eosinophils % (A) 1 %; HCT 50.5 % (39.0-53.0); HGB 17.1 gm/dL (13.0-17.5); Lymphocytes # (A) 1.8 k/uL (1.0-4.8); Lymphocytes % (A) 13 %; MCH 30.9 pg (25.0-35.0); MCHC 33.9 g/dL (31.0-37.0); MCV 91.2 fL (80.0-100.0); Mean Platelet Volume 7.2; Monocytes # (A) 0.8 k/uL (0-1.0); Monocytes % (A) 6 %; Neutrophils # (A) 11.2 k/uL (1.3-7.7); Neutrophils % (A) 80 %; Platelet Count 270 k/uL (150-450); RBC 5.54 m/uL (4.30-5.90); RDW 12.6 % (11.5-15.5)
[2022-12-20 11:37] LABS: Prothrombin Time 10.3 sec (9.0-12.0)
[2022-12-20 11:38] LABS: ALT 67 U/L (4-49); AST 41 U/L (17-59); African American GFR (CKD) >90 (>60 ml/min/1.73 sqM); Albumin 4.3 g/dL (3.5-5.0); Alkaline Phosphatase 87 U/L (38-126); Anion Gap 11 mmol/L; Blood Urea Nitrogen 17 mg/dL (9-20); Calcium 9.5 mg/dL (8.4-10.2); Carbon Dioxide 22 mmol/L (22-30); Chloride 105 mmol/L (98-107); Glucose 107 mg/dL (74-99); Non-African American GFR(CKD) 80 (>60 ml/min/1.73 sqM); Potassium 4.2 mmol/L (3.5-5.1); Sodium 138 mmol/L (137-145); Total Bilirubin 1.2 mg/dL (0.2-1.3); Total Protein 7.4 g/dL (6.3-8.2)
--- NOTE | 2022-12-20 11:38 | XR ---
EXAMINATION TYPE: XR chest 2V DATE OF EXAM: 12/20/2022 11:15 AM CLINICAL INDICATION:Male, 62 years old with history of difficulty breathing; COMPARISON: Chest radiographs from 09/30/2020 TECHNIQUE: XR chest 2V Frontal and lateral views of the chest. FINDINGS: Lungs/Pleura: There is no evidence of pleural effusion, focal consolidation, or pneumothorax. Pulmonary vascularity: Unremarkable. Heart/mediastinum: Cardiomediastinal silhouette is unremarkable. Musculoskeletal: No acute osseous pathology. IMPRESSION: Low lung volumes with a generalized hazy appearance which could represent atelectasis versus pulmonar y edema correlate with serum BNP.
[2022-12-20 11:45] LABS: NT-Pro-B-Type Natriuretic Pept 108 pg/mL
--- NOTE | 2022-12-20 12:20 | CT ---
EXAMINATION TYPE: CT chest angio for PE CT DLP: 588.6 mGycm, Automated exposure control for dose reduction was used. DATE OF EXAM: 12/20/2022 12:12 PM COMPARISON: 09/21/2020 CLINICAL INDICATION:Male, 62 years old with history of Dyspnea, elevated d-dimer; elevated d-dimer TECHNIQUE/CONTRAST: CTA scan of the thorax is performed with IV Contrast, patient injected with 100 mL of Isovue 370, MIP images are created and reviewed these are created on a separate workstation.. FINDINGS: Pulmonary Artery: There is no evidence for a filling defect within the pulmonary vasculature to sugge st acute pulmonary embolism. The pulmonary artery is of normal size. Lungs/Pleura: No evidence of focal consolidation, pleural effusion or pneumothorax. Airway: Large airways are patent. Heart: Heart is within normal limits for size. Vasculature: No evidence of aortic aneurysm. Mediastinum: No gross evidence of adenopathy. Musculoskeletal: Mild degenerative disc disease changes are present throughout the thoracolumbar spin e. Soft Tissues: Unremarkable. Lower neck: No significant findings. Upper Abdomen: No significant findings. IMPRESSION: No evidence of pulmonary embolism.
--- NOTE | 2022-12-20 12:23 | CT ---
EXAMINATION TYPE: CT abdomen pelvis w con CT DLP: 1525.3 mGycm, Automated exposure control for dose reduction was used. DATE OF EXAM: 12/20/2022 12:13 PM COMPARISON: CT abdomen pelvis most recent from CLINICAL INDICATION:Male, 62 years old with history of LLQ abdominal pain; abd pain TECHNIQUE: Axial CT of the abdomen and pelvis. Sagittal and coronal reformats were created on a [employer] workstation. Contrast used:100 mL of Isovue 300 with IV Contrast, (none if empty) Oral contrast used: without Oral Contrast (none if empty) FINDINGS: LOWER CHEST: Unremarkable ABDOMEN LIVER: Unremarkable GALLBLADDER AND BILE DUCTS: Unremarkable. PANCREAS: Unremarkable. SPLEEN: Unremarkable. ADRENAL GLANDS: Unremarkable. KIDNEYS AND URETERS: No evidence of hydronephrosis or renal calculus. The ureters are unremarkable. Simple left renal cyst. PELVIS BLADDER: Unremarkable REPRODUCTIVE: Prostate is enlarged in size measuring 4.4 cm in transverse dimension. ABDOMEN & PELVIS STOMACH AND BOWEL: No evidence of bowel obstruction. Nondistention: With thickened wall appearance li brayden due to underdistention. PERITONEUM/RETROPERITONEUM: No evidence of pneumoperitoneum or free fluid. VASCULATURE: No evidence of aortic aneurysm. MUSCULOSKELETAL: No acute osseous abnormalities LYMPH NODES: No gross evidence for lymphadenopathy. SOFT TISSUE/ABDOMINAL WALL: Fat-containing left inguinal hernia. IMPRESSION: No evidence for acute left lower quadrant to explain the patient's pain. No obstructive uropathy. The colon is relatively nondistended on the left abdomen could represent some mild colitis.
[2022-12-20 12:32] LABS: Appearance,Urine Clear (Clear); Bilirubin,Urine Negative (Negative); Blood,Urine Negative (Negative); Color,Urine Yellow; Glucose,Urine (UA) Negative (Negative); Ketones,Urine Negative (Negative); Leukocyte Esterase,Urine Negative (Negative); Mucus,Urine Few /hpf; Nitrite,Urine Negative (Negative); Protein,Urine 1+ (Negative); RBC,Urine 4 /hpf (0-5); Squamous Epithelial Cell,Urine <1 /hpf (0-4); Urobilinogen,Urine <2.0 mg/dL (<2.0); WBC,Urine <1 /hpf (0-5)
[2022-12-20 12:36] LABS: Specific Gravity,Urine >1.050 (1.001-1.035)
[2022-12-20] MEDS ORDERED: IPRATROPIUM-ALBUTEROL 3 ML NEB INHALATION STA (12:52)
[2022-12-20] MEDS ORDERED: FAMOTIDINE 20 MG/2 ML VIAL IV STA (12:52)
[2022-12-20] MEDS ORDERED: LORazepam 2 MG/ML INJ IV STA (14:14)
[2022-12-20 15:35] VITALS: BP 141/80; PULSE 80; RESP 18
== END 2022-12-20 15:32 | disposition home or self-care (01) ==
LOC: EC 10:21
DX: R06.00 Dyspnea, unspecified (principal); R10.9 Unspecified abdominal pain; R11.0 Nausea; F41.9 Anxiety disorder, unspecified; I10 Essential (primary) hypertension; F17.200 Nicotine dependence, unspecified, uncomplicated; Z20.822 Contact with and (suspected) exposure to COVID-19
CPT/HCPCS: 36415; 94640; 93005; 85379; 83880; 80053; 83605; 84484; 85025; 85610; 85730; 81001; 87636; 71046; 71275; 74177; 99285; 96374; 96375 ×4; 96361; J2060; J2405; J3490; J2270; J1885; Q9967

== ENCOUNTER 2023-01-01 06:49 | Emergency (ER) | payer BC ==
[2023-01-01] MEDS ORDERED: LORazepam 2 MG/ML INJ IV STA (07:35)
[2023-01-01] MEDS ORDERED: SODIUM CHLORIDE 0.9% 500 ML 500 ML IV ONE (07:36)
--- NOTE | 2023-01-01 07:43 | ED ---
General Adult HPI - General Chief complaint: Shortness of Breath Stated complaint: SOB Time Seen by Provider: 01/01/23 07:00 Source: patient, RN notes reviewed, old records reviewed Mode of arrival: ambulatory Limitations: no limitations - History of Present Illness Initial comments: This is a 62-year-old male who presents emergency Department stating having anxiety attack. Patient states she's never had any anxiety until about 3 weeks ago and he ended up in an emergency department and [place]. Patient states he was again seen here in the emergency department about a week and a half ago. Patient states since then he seen his primary medical care doctor and the GI doctor doctor tomorrow. Patient has another appointment with Dr. Junior on . Patient states he woke up at midnight and was unable to sleep the rest tonight because he was anxious. Patient thinks she has some sort of problem with this abdominal area because he has a lot more burping and passing more gas. Patient states he started seeing Dr. Junior for his abdominal issues and he has another appointment with her on Wednesday. Patient does not have any pain currently but has increased burping and flatulence. Patient denies any nausea vomiting or diarrhea. Patient denies any fever chills. Patient denies any chest pain difficulty breathing shortness of breath. Patient states when he gets anxious he feel like she needs to keep her breath is not short of breath. - Related Data Home Medications Medication Instructions Recorded Confirmed Olmesartan Medoxomil 40 mg PO QAM 01/20/22 01/20/22 Previous Rx's Medication Instructions Recorded LORazepam [Ativan] 1 mg PO TID 3 Days #9 tab 12/20/22 Ondansetron Odt [Zofran Odt] 4 mg PO Q8HR PRN #20 tab 12/20/22 Pantoprazole [Protonix] 40 mg PO DAILY 14 Days #14 tab 12/20/22 Allergies Allergy/AdvReac Type Severity Reaction Status Date / Time No Known Allergies Allergy Verified 01/01/23 06:56 Review of Systems ROS Statement: Those systems with pertinent positive or pertinent negative responses have been documented in the HPI. ROS Other: All systems not noted in ROS Statement are negative. Past Medical History Past Medical History: Hypertension Additional Past Medical History / Comment(s): hx colon polyps,bronchitis Dec 2021,steroids Dec 2021 History of Any Multi-Drug Resistant Organisms: None Reported Past Surgical History: Orthopedic Surgery Additional Past Surgical History / Comment(s): RT HEEL SX AGE 18 Past Anesthesia/Blood Transfusion Reactions: No Reported Reaction Past Psychological History: No Psychological Hx Reported Smoking Status: Current every day smoker Past Alcohol Use History: None Reported Past Drug Use History: None Reported - Past Family History Sister(s) Family Medical History: Cancer Additional Family Medical History / Comment(s): COLON Mother Family Medical History: Cancer Additional Family Medical History / Comment(s): THROAT General Exam - General Exam Comments Initial Comments: GENERAL: Patient is well-developed and well-nourished. Patient is nontoxic and well- hydrated and is in mild distress. ENT: Neck is soft and supple. No significant lymphadenopathy is noted. Oropharynx is clear. Moist mucous membranes. Neck has full range of motion without eliciting any pain. EYES: The sclera were anicteric and conjunctiva were pink and moist. Extraocular movements were intact and pupils were equal round and reactive to light. Eyelids were unremarkable. PULMONARY: Unlabored respirations. Good breath sounds bilaterally. No audible rales rhonchi or wheezing was noted. CARDIOVASCULAR: There is a regular rate and rhythm without any murmurs gallops or rubs. ABDOMEN: Soft and nontender with normal bowel sounds. SKIN: Skin is clear with no lesions or rashes and otherwise unremarkable. NEUROLOGIC: Patient is alert and oriented x3. Cranial nerves II through XII are grossly intact. Motor and sensory are also intact. Normal speech, volume and content. Symmetrical smile. MUSCULOSKELETAL: Normal extremities with adequate strength and full range of motion. No lower extremity swelling or edema. No calf tenderness. LYMPHATICS: No significant lymphadenopathy is noted PSYCHIATRIC: Patient is very anxious Limitations: no limitations Course Vital Signs 01/01/23 01/01/23 06:56 08:50 Temperature 98.1 F Pulse Rate 65 60 Respiratory 32 H 20 Rate Blood Pressure 140/83 140/73 O2 Sat by Pulse 98 98 Oximetry Medical Decision Making - Medical Decision Making Was pt. sent in by a medical professional or institution (, PA, GAS ENGINE OPERATOR GENERATORS, urgent care, hospital, or detention...) When possible be specific @ -No Did you speak to anyone other than the patient for history (EMS, parent, family, police, friend...)? What history was obtained from this source @ -No Did you review nursing and triage notes (agree or disagree)? Why? @ -I reviewed and agree with nursing and triage notes Were old charts reviewed (outside hosp., previous admission, EMS record, old EKG, old radiological studies, urgent care reports/EKG's, detention records)? Report findings @ -I reviewed prior visits prior charts in prior lab work Differential Diagnosis (chest pain, altered mental status, abdominal pain women, abdominal pain men, vaginal bleeding, weakness, fever, dyspnea, syncope, headache, dizziness, GI bleed, back pain, seizure, CVA, palpatations, mental health, musculoskeletal)? @ -Differential Mental Health Depression, anxiety, bipolar, psychosis, schizophrenia, borderline personality, situational depression, adjustment disorder, behavioral disorder, brain tumor, malingering, substance abuse, encephalopathy, medication reaction, dementia, hypothyroidism, degenerative neurologic disorder, lupus.... This is not meant to be all-inclusive list EKG interpreted by me (3pts min.). @ -As above X-rays interpreted by me (1pt min.). @ -None done CT interpreted by me (1pt min.). @ -None done U/S interpreted by me (1pt. min.). @ -None done What testing was considered but not performed or refused? (CT, X-rays, U/S, labs)? Why? @ -None What meds were considered but not given or refused? Why? @ -None Did you discuss the management of the patient with other professionals (professionals i.e. , PA, GAS ENGINE OPERATOR GENERATORS, lab, RT, psych nurse, administrator social welfare, jack winder, teacher, chief business officer, lead case manager)? Give summary @ -No Was smoking cessation discussed for >3mins.? @ -No Was critical care preformed (if so, how long)? @ -No Were there social determinants of health that impacted care today? How? (Homelessness, low income, unemployed, alcoholism, drug addiction, transportation, low edu. Level, literacy, decrease access to med. care, [facility], rehab)? @ -No Was there de-escalation of care discussed even if they declined (Discuss DNR or withdrawal of care, Hospice)? DNR status @ -No What co-morbidities impacted this encounter? (DM, HTN, Smoking, COPD, CAD, Cancer, CVA, ARF, Chemo, Hep., AIDS, mental health diagnosis, sleep apnea, morbid obesity)? @ -None Was patient admitted / discharged? Hospital course, mention meds given and route, prescriptions, significant lab abnormalities, going to OR and other pertinent info. @ -Given Ativan and I will back in and evaluated the patient he was doing considerably better. Patient has a follow-up with his GI doctor and he states she'll Follow-up with Dr. Davila Undiagnosed new problem with uncertain prognosis? @ -No Drug Therapy requiring intensive monitoring for toxicity (Heparin, Nitro, Insulin, Cardizem)? @ -No Were any procedures done? @ -No Diagnosis/symptom? @ -Anxiety Acute, or Chronic, or Acute on Chronic? @ -Acute Uncomplicated (without systemic symptoms) or Complicated (systemic symptoms)? @ -Uncomplicated Side effects of treatment? @ -No Exacerbation, Progression, or Severe Exacerbation? @ -No Poses a threat to life or bodily function? How? (Chest pain, [place], [place], pneumonia, PE, COPD, DKA, ARF, appy, cholecystitis, CVA, Diverticulitis, Homicidal, Suicidal, threat to staff... and all critical care pts) @ -No - Lab Data Result diagrams: 01/01/23 08:10 01/01/23 08:10 Lab Results 01/01/23 01/01/23 Range/Units 08:10 08:10 WBC 9.2 (3.8-10.6) k/uL RBC 5.49 (4.30-5.90) m/uL Hgb 16.9 (13.0-17.5) gm/dL Hct 49.1 (39.0-53.0) % MCV 89.5 (80.0-100.0) fL MCH 30.9 (25.0-35.0) pg MCHC 34.5 (31.0-37.0) g/dL RDW 12.4 (11.5-15.5) % Plt Count 259 (150-450) k/uL MPV 7.1 Neutrophils % 70 % Lymphocytes % 21 % Monocytes % 6 % Eosinophils % 2 % Basophils % 0 % Neutrophils # 6.5 (1.3-7.7) k/uL Lymphocytes # 1.9 (1.0-4.8) k/uL Monocytes # 0.5 (0-1.0) k/uL Eosinophils # 0.2 (0-0.7) k/uL Basophils # 0.0 (0-0.2) k/uL Sodium 136 L (137-145) mmol/L Potassium 4.6 (3.5-5.1) mmol/L Chloride 105 (98-107) mmol/L Carbon Dioxide 20 L (22-30) mmol/L Anion Gap 11 mmol/L BUN 14 (9-20) mg/dL Creatinine 1.02 (0.66-1.25) mg/dL Est GFR (CKD-EPI)AfAm >90 (>60 ml/min/1.73 sqM) Est GFR (CKD-EPI)NonAf 79 (>60 ml/min/1.73 sqM) Glucose 97 (74-99) mg/dL Calcium 9.4 (8.4-10.2) mg/dL Total Bilirubin 1.3 (0.2-1.3) mg/dL AST 29 (17-59) U/L ALT 38 (4-49) U/L Alkaline Phosphatase 82 (38-126) U/L Total Protein 7.0 (6.3-8.2) g/dL Albumin 4.1 (3.5-5.0) g/dL Disposition Clinical Impression: Anxiety Disposition: HOME SELF-CARE Instructions (If sedation given, give patient instructions): Anxiety (ED) Is patient prescribed a controlled substance at d/c from ED?: No Referrals: Zuhair Davila DO [Primary Care Provider] - 1-2 days Time of Disposition: 08:50
[2023-01-01 08:19] LABS: Basophils % (A) 0 %; Eosinophils # (A) 0.2 k/uL (0-0.7); Eosinophils % (A) 2 %; HCT 49.1 % (39.0-53.0); HGB 16.9 gm/dL (13.0-17.5); Lymphocytes # (A) 1.9 k/uL (1.0-4.8); Lymphocytes % (A) 21 %; MCH 30.9 pg (25.0-35.0); MCHC 34.5 g/dL (31.0-37.0); MCV 89.5 fL (80.0-100.0); Mean Platelet Volume 7.1; Monocytes # (A) 0.5 k/uL (0-1.0); Monocytes % (A) 6 %; Neutrophils # (A) 6.5 k/uL (1.3-7.7); Neutrophils % (A) 70 %; Platelet Count 259 k/uL (150-450); RBC 5.49 m/uL (4.30-5.90); RDW 12.4 % (11.5-15.5); WBC 9.2 k/uL (3.8-10.6)
[2023-01-01 08:30] LABS: ALT 38 U/L (4-49); AST 29 U/L (17-59); African American GFR (CKD) >90 (>60 ml/min/1.73 sqM); Albumin 4.1 g/dL (3.5-5.0); Alkaline Phosphatase 82 U/L (38-126); Anion Gap 11 mmol/L; Blood Urea Nitrogen 14 mg/dL (9-20); Calcium 9.4 mg/dL (8.4-10.2); Carbon Dioxide 20 mmol/L (22-30); Chloride 105 mmol/L (98-107); Glucose 97 mg/dL (74-99); Non-African American GFR(CKD) 79 (>60 ml/min/1.73 sqM); Potassium 4.6 mmol/L (3.5-5.1); Sodium 136 mmol/L (137-145); Total Bilirubin 1.3 mg/dL (0.2-1.3)
[2023-01-01 10:42] VITALS: BP 137/87; PULSE 51; RESP 18; TEMP 97.7
== END 2023-01-01 10:30 | disposition home or self-care (01) ==
LOC: EC 06:49
DX: F41.9 Anxiety disorder, unspecified (principal); I10 Essential (primary) hypertension; F17.200 Nicotine dependence, unspecified, uncomplicated; Z79.899 Other long term (current) drug therapy
CPT/HCPCS: 99285; 36415; 80053; 85025; 96374; J2060

== ENCOUNTER 2023-01-18 08:26 | Inpatient (IN) | payer BC, MEDICAID ==
--- NOTE | 2023-01-18 08:44 | ED ---
General Adult HPI - General Chief complaint: Psychiatric Symptoms Stated complaint: Anxiety Time Seen by Provider: 01/18/23 08:34 Source: patient, RN notes reviewed, old records reviewed Mode of arrival: ambulatory Limitations: no limitations - History of Present Illness Initial comments: 62-year-old female presenting for male presenting for anxiety, depression and suicidal thoughts. Patient states he's had worsening anxiety with panic attacks. He states he's had thoughts of suicide over the past one week with multiple potential plans. He denies suicide attempt. He states that he currently lives with his even though the had undergone a divorce approximately 3 years ago and that his is currently planning to move out. - Related Data Home Medications Medication Instructions Recorded Confirmed Olmesartan Medoxomil 40 mg PO QAM 01/20/22 01/18/23 Escitalopram [Lexapro] 10 mg PO DAILY 01/18/23 01/18/23 LORazepam [Ativan] 0.5 - 1 mg PO DAILY PRN 01/18/23 01/18/23 Allergies Allergy/AdvReac Type Severity Reaction Status Date / Time No Known Allergies Allergy Verified 01/18/23 11:30 Review of Systems ROS Statement: Those systems with pertinent positive or pertinent negative responses have been documented in the HPI. ROS Other: All systems not noted in ROS Statement are negative. Past Medical History Past Medical History: Hypertension Additional Past Medical History / Comment(s): hx colon polyps,bronchitis Dec 2021,steroids Dec 2021 History of Any Multi-Drug Resistant Organisms: None Reported Past Surgical History: Orthopedic Surgery Additional Past Surgical History / Comment(s): RT HEEL SX AGE 18 Past Anesthesia/Blood Transfusion Reactions: No Reported Reaction Past Psychological History: Anxiety, Depression Smoking Status: Current every day smoker Past Alcohol Use History: None Reported Past Drug Use History: None Reported - Past Family History Sister(s) Family Medical History: Cancer Additional Family Medical History / Comment(s): COLON Mother Family Medical History: Cancer Additional Family Medical History / Comment(s): THROAT General Exam Limitations: no limitations General appearance: alert, anxious Head exam: Present: atraumatic, normocephalic Eye exam: Present: normal appearance, PERRL Respiratory exam: Present: normal lung sounds bilaterally. Absent: respiratory distress, wheezes Cardiovascular Exam: Present: regular rate, normal rhythm GI/Abdominal exam: Present: soft. Absent: distended, tenderness Extremities exam: Present: normal inspection, normal capillary refill Neurological exam: Present: alert, oriented X3 Psychiatric exam: Present: depressed, anxious, suicidal ideation Skin exam: Present: warm, dry, intact Course Vital Signs 01/18/23 01/18/23 01/19/23 08:27 19:00 05:27 Temperature 97.2 F L 96.3 F L 96.3 F L Pulse Rate 78 78 78 Respiratory 24 18 18 Rate Blood Pressure 151/82 118/67 118/67 O2 Sat by Pulse 97 100 100 Oximetry 01/19/23 01/19/23 01/19/23 06:22 09:08 12:00 Temperature 98.6 F 98.2 F Pulse Rate 72 61 75 Respiratory 18 18 18 Rate Blood Pressure 120/74 120/74 115/76 O2 Sat by Pulse 98 96 95 Oximetry - Reevaluation(s) Reevaluation #1: 01/18/23 09:07 Cleared for EPS Medical Decision Making - Medical Decision Making Was pt. sent in by a medical professional or institution ( PA, REFRESH TECHNICIAN, urgent care, hospital, or assisted...) When possible be specific @ -No Did you speak to anyone other than the patient for history (EMS, parent, family, police, friend...)? What history was obtained from this source @ -No Did you review nursing and triage notes (agree or disagree)? Why? @ -I reviewed and agree with nursing and triage notes Were old charts reviewed (outside hosp., previous admission, EMS record, old EKG, old radiological studies, urgent care reports/EKG's, assisted records)? Report findings @ -No old charts were reviewed Differential Diagnosis (chest pain, altered mental status, abdominal pain women, abdominal pain men, vaginal bleeding, weakness, fever, dyspnea, syncope, headache, dizziness, GI bleed, back pain, seizure, CVA, palpatations, mental health, musculoskeletal)? @ -[nDifferential Mental Health Depression, anxiety, bipolar, psychosis, schizophrenia, borderline personality, situational depression, adjustment disorder, behavioral disorder, brain tumor, malingering, substance abuse, encephalopathy, medication reaction, dementia, hypothyroidism, degenerative neurologic disorder, lupus.... This is not meant to be all-inclusive list EKG interpreted by me (3pts min.). @ -As above X-rays interpreted by me (1pt min.). @ -None done CT interpreted by me (1pt min.). @ -None done U/S interpreted by me (1pt. min.). @ -None done What testing was considered but not performed or refused? (CT, X-rays, U/S, labs)? Why? @ -None What meds were considered but not given or refused? Why? @ -None Did you discuss the management of the patient with other professionals (professionals i.e. , PA, REFRESH TECHNICIAN, lab, RT, psych nurse, hospice social worker, ballistics expert forensic, teacher, chief strategy officer, casework manager)? Give summary @ Evaluated by mental health and felt to require inpatient psychiatric evaluation treatment. Will be transferred. Was smoking cessation discussed for >3mins.? @ -No Was critical care preformed (if so, how long)? @ -No Were there social determinants of health that impacted care today? How? (Homelessness, low income, unemployed, alcoholism, drug addiction, transpor tation, low edu. Level, literacy, decrease access to med. care, longterm, rehab)? @ -No Was there de-escalation of care discussed even if they declined (Discuss DNR or withdrawal of care, Hospice)? DNR status @ -No What co-morbidities impacted this encounter? (DM, HTN, Smoking, COPD, CAD, Cancer, CVA, ARF, Chemo, Hep., AIDS, mental health diagnosis, sleep apnea, morbid obesity)? @ -Anxiety Was patient admitted / discharged? Hospital course, mention meds given and route, prescriptions, significant lab abnormalities, going to OR and other pertinent info. @ -[16-year-old male with increased anxiety, suicidal thoughts. Patient will require inpatient psychiatric care. He will require transfer secondary to no inpatient psychiatric beds at this facility. Undiagnosed new problem with uncertain prognosis? @ -No Drug Therapy requiring intensive monitoring for toxicity (Heparin, Nitro, Insulin, Cardizem)? @ -No Were any procedures done? @ -No Diagnosis/symptom? @ Anxiety, depression, suicidal ideation Acute, or Chronic, or Acute on Chronic? @ Acute Uncomplicated (without systemic symptoms) or Complicated (systemic symptoms)? @ -default Side effects of treatment? @ -No Exacerbation, Progression, or Severe Exacerbation? @ -No Poses a threat to life or bodily function? How? (Chest pain, [place], [place], pneumonia, PE, COPD, DKA, ARF, appy, cholecystitis, CVA, Diverticulitis, Homicidal, Suicidal, threat to staff... and all critical care pts) @ Yes self-harm - Lab Data Result diagrams: 01/20/23 12:42 01/20/23 12:42 Lab Results 01/18/23 01/18/23 01/18/23 Range/Units 09:00 16:07 16:07 WBC 8.9 (3.8-10.6) k/uL RBC 4.87 (4.30-5.90) m/uL Hgb 15.1 (13.0-17.5) gm/dL Hct 44.0 (39.0-53.0) % MCV 90.4 (80.0-100.0) fL MCH 31.0 (25.0-35.0) pg MCHC 34.3 (31.0-37.0) g/dL RDW 12.4 (11.5-15.5) % Plt Count 180 (150-450) k/uL MPV 7.3 Neutrophils % 62 % Lymphocytes % 28 % Monocytes % 6 % Eosinophils % 3 % Basophils % 0 % Neutrophils # 5.5 (1.3-7.7) k/uL Lymphocytes # 2.4 (1.0-4.8) k/uL Monocytes # 0.5 (0-1.0) k/uL Eosinophils # 0.3 (0-0.7) k/uL Basophils # 0.0 (0-0.2) k/uL Sodium 136 L (137-145) mmol/L Potassium 3.7 (3.5-5.1) mmol/L Chloride 104 (98-107) mmol/L Carbon Dioxide 22 (22-30) mmol/L Anion Gap 10 mmol/L BUN 11 (9-20) mg/dL Creatinine 0.92 (0.66-1.25) mg/dL Est GFR (CKD-EPI)AfAm >90 (>60 ml/min/1.73 sqM) Est GFR (CKD-EPI)NonAf 89 (>60 ml/min/1.73 sqM) Glucose 109 H (74-99) mg/dL Calcium 8.6 (8.4-10.2) mg/dL Urine Color Urine Appearance (Clear) Urine pH (5.0-8.0) Ur Specific [place] (1.001-1.035) Urine Protein (Negative) Urine Glucose (UA) (Negative) Urine Ketones (Negative) Urine Blood (Negative) Urine Nitrite (Negative) Urine Bilirubin (Negative) Urine Urobilinogen (<2.0) mg/dL Ur Leukocyte Esterase (Negative) Urine Opiates Screen Not Detected (NotDetected) Ur Oxycodone Screen Not Detected (NotDetected) Urine Methadone Screen Not Detected (NotDetected) Ur Propoxyphene Screen Not Detected (NotDetected) Ur Barbiturates Screen Not Detected (NotDetected) U Tricyclic Antidepress Not Detected (NotDetected) Ur Phencyclidine Scrn Not Detected (NotDetected) Ur Amphetamines Screen Not Detected (NotDetected) U Methamphetamines Scrn Not Detected (NotDetected) U Benzodiazepines Scrn Detected H (NotDetected) Urine Cocaine Screen Not Detected (NotDetected) U Marijuana (THC) Screen Not Detected (NotDetected) Influenza Type A (PCR) (Not Detectd) Influenza Type B (PCR) (Not Detectd) RSV (PCR) (Not Detectd) SARS-CoV-2 (PCR) (Not Detectd) 01/18/23 01/19/23 Range/Units 17:57 04:08 WBC (3.8-10.6) k/uL RBC (4.30-5.90) m/uL Hgb (13.0-17.5) gm/dL Hct (39.0-53.0) % MCV (80.0-100.0) fL MCH (25.0-35.0) pg MCHC (31.0-37.0) g/dL RDW (11.5-15.5) % Plt Count (150-450) k/uL MPV Neutrophils % % Lymphocytes % % Monocytes % % Eosinophils % % Basophils % % Neutrophils # (1.3-7.7) k/uL Lymphocytes # (1.0-4.8) k/uL Monocytes # (0-1.0) k/uL Eosinophils # (0-0.7) k/uL Basophils # (0-0.2) k/uL Sodium (137-145) mmol/L Potassium (3.5-5.1) mmol/L Chloride (98-107) mmol/L Carbon Dioxide (22-30) mmol/L Anion Gap mmol/L BUN (9-20) mg/dL Creatinine (0.66-1.25) mg/dL Est GFR (CKD-EPI)AfAm (>60 ml/min/1.73 sqM) Est GFR (CKD-EPI)NonAf (>60 ml/min/1.73 sqM) Glucose (74-99) mg/dL Calcium (8.4-10.2) mg/dL Urine Color Light Yellow Urine Appearance Clear (Clear) Urine pH 6.0 (5.0-8.0) Ur Specific [place] 1.015 (1.001-1.035) Urine Protein Negative (Negative) Urine Glucose (UA) Negative (Negative) Urine Ketones Negative (Negative) Urine Blood Negative (Negative) Urine Nitrite Negative (Negative) Urine Bilirubin Negative (Negative) Urine Urobilinogen <2.0 (<2.0) mg/dL Ur Leukocyte Esterase Negative (Negative) Urine Opiates Screen (NotDetected) Ur Oxycodone Screen (NotDetected) Urine Methadone Screen (NotDetected) Ur Propoxyphene Screen (NotDetected) Ur Barbiturates Screen (NotDetected) U Tricyclic Antidepress (NotDetected) Ur Phencyclidine Scrn (NotDetected) Ur Amphetamines Screen (NotDetected) U Methamphetamines Scrn (NotDetected) U Benzodiazepines Scrn (NotDetected) Urine Cocaine Screen (NotDetected) U Marijuana (THC) Screen (NotDetected) Influenza Type A (PCR) Not Detected (Not Detectd) Influenza Type B (PCR) Not Detected (Not Detectd) RSV (PCR) Not Detected (Not Detectd) SARS-CoV-2 (PCR) Not Detected (Not Detectd) Disposition Clinical Impression: Depression, Suicidal ideation, Acute anxiety Disposition: ADMITTED IP TO THIS HOSP Condition: Stable Is patient prescribed a controlled substance at d/c from ED?: No Time of Disposition: 14:31
[2023-01-18] MEDS ORDERED: LORazepam 1 MG TAB PO STA (08:52)
[2023-01-18 09:48] LABS: Amphetamine Screen,Urine Not Detected (NotDetected); Barbiturate Screen,Urine Not Detected (NotDetected); Benzodiazepines Screen,Urine Detected (NotDetected); Cocaine Screen,Urine Not Detected (NotDetected); Methadone Screen, Urine Not Detected (NotDetected); Opiate Screen,Urine Not Detected (NotDetected); Oxycodone Screen, Urine Not Detected (NotDetected); Phencyclidine Screen,Urine Not Detected (NotDetected); Tricyclic Antidepressant,Urine Not Detected (NotDetected); Urn Cannabinoid Scrn Not Detected (NotDetected)
[2023-01-18 16:31] LABS: Basophils % (A) 0 %; Eosinophils # (A) 0.3 k/uL (0-0.7); Eosinophils % (A) 3 %; HGB 15.1 gm/dL (13.0-17.5); Lymphocytes # (A) 2.4 k/uL (1.0-4.8); Lymphocytes % (A) 28 %; MCHC 34.3 g/dL (31.0-37.0); MCV 90.4 fL (80.0-100.0); Mean Platelet Volume 7.3; Monocytes # (A) 0.5 k/uL (0-1.0); Monocytes % (A) 6 %; Neutrophils # (A) 5.5 k/uL (1.3-7.7); Neutrophils % (A) 62 %; Platelet Count 180 k/uL (150-450); RBC 4.87 m/uL (4.30-5.90); RDW 12.4 % (11.5-15.5); WBC 8.9 k/uL (3.8-10.6)
[2023-01-18 17:26] LABS: African American GFR (CKD) >90 (>60 ml/min/1.73 sqM); Anion Gap 10 mmol/L; Blood Urea Nitrogen 11 mg/dL (9-20); Calcium 8.6 mg/dL (8.4-10.2); Carbon Dioxide 22 mmol/L (22-30); Chloride 104 mmol/L (98-107); Glucose 109 mg/dL (74-99); Non-African American GFR(CKD) 89 (>60 ml/min/1.73 sqM); Potassium 3.7 mmol/L (3.5-5.1); Sodium 136 mmol/L (137-145)
[2023-01-18] MEDS ORDERED: LORazepam 1 MG TAB PO PRN (19:26)
[2023-01-19 04:44] LABS: Appearance,Urine Clear (Clear); Bilirubin,Urine Negative (Negative); Blood,Urine Negative (Negative); Color,Urine Light Yellow; Glucose,Urine (UA) Negative (Negative); Ketones,Urine Negative (Negative); Leukocyte Esterase,Urine Negative (Negative); Nitrite,Urine Negative (Negative); Protein,Urine Negative (Negative); Specific Gravity,Urine 1.015 (1.001-1.035); Urobilinogen,Urine <2.0 mg/dL (<2.0)
[2023-01-19] MEDS: LOSARTAN 50 MG TAB PO SCH (09:05)
[2023-01-19] MEDS: ESCITALOPRAM 10 MG TAB PO SCH (09:07)
[2023-01-19] MEDS ORDERED: HALOPERIDOL LACTATE 5 MG/ML 1 ML VIAL IM PRN (16:44)
[2023-01-19] MEDS ORDERED: LORazepam 2 MG/ML INJ IM PRN (16:44)
[2023-01-19] MEDS ORDERED: ACETAMINOPHEN TAB 325 MG TAB PO PRN (16:44)
[2023-01-19] MEDS ORDERED: haloperidoL 5 MG TAB PO PRN (16:44)
[2023-01-19] MEDS ORDERED: IBUPROFEN 600 MG TAB PO PRN (16:44)
[2023-01-19] MEDS ORDERED: MAGNESIUM HYDROXIDE 2,400 MG/30 ML CUP PO PRN (16:44)
[2023-01-20] MEDS: LORazepam 1 MG TAB PO PRN ×2 (07:48→18:10)
[2023-01-20] MEDS: ESCITALOPRAM 10 MG TAB PO SCH (07:48)
[2023-01-20] MEDS: LOSARTAN 50 MG TAB PO SCH (07:48)
[2023-01-20 13:17] LABS: Basophils % (A) 1 %; Eosinophils # (A) 0.2 k/uL (0-0.7); Eosinophils % (A) 2 %; HCT 47.6 % (39.0-53.0); HGB 15.7 gm/dL (13.0-17.5); Lymphocytes # (A) 1.6 k/uL (1.0-4.8); Lymphocytes % (A) 17 %; MCH 30.2 pg (25.0-35.0); MCHC 33.1 g/dL (31.0-37.0); MCV 91.3 fL (80.0-100.0); Mean Platelet Volume 8.2; Monocytes # (A) 0.9 k/uL (0-1.0); Monocytes % (A) 10 %; Neutrophils # (A) 6.9 k/uL (1.3-7.7); Neutrophils % (A) 70 %; Platelet Count 203 k/uL (150-450); RBC 5.21 m/uL (4.30-5.90); RDW 12.4 % (11.5-15.5); WBC 9.9 k/uL (3.8-10.6)
[2023-01-20 13:35] LABS: ALT 52 U/L (4-49); AST 32 U/L (17-59); African American GFR (CKD) >90 (>60 ml/min/1.73 sqM); Albumin 4.1 g/dL (3.5-5.0); Alkaline Phosphatase 80 U/L (38-126); Anion Gap 14 mmol/L; Blood Urea Nitrogen 15 mg/dL (9-20); Calcium 9.2 mg/dL (8.4-10.2); Carbon Dioxide 20 mmol/L (22-30); Chloride 104 mmol/L (98-107); Non-African American GFR(CKD) 79 (>60 ml/min/1.73 sqM); Potassium 4.2 mmol/L (3.5-5.1); Sodium 138 mmol/L (137-145); Total Bilirubin 0.8 mg/dL (0.2-1.3); Total Protein 6.9 g/dL (6.3-8.2)
[2023-01-20 13:39] LABS: Glucose 49 mg/dL (74-99)
--- NOTE | 2023-01-20 13:55 | P.HP ---
Psychiatric H&P - . H&P Date: 01/20/23 History & Physical: Allergies Allergy/AdvReac Type Severity Reaction Status Date / Time No Known Allergies Allergy Verified 01/18/23 11:30 Vital Signs Temp 97.9 F 01/20/23 06:50 Pulse 84 01/20/23 07:49 Resp 18 01/20/23 06:50 BP 122/83 01/20/23 07:49 Pulse Ox 97 01/20/23 06:50 FiO2 Intake & Output 01/19/23 01/20/23 01/20/23 18:59 06:59 18:59 Weight 96.933 kg Laboratory Last Values WBC 9.9 k/uL (3.8-10.6) 01/20/23 12:42 RBC 5.21 m/uL (4.30-5.90) 01/20/23 12:42 Hgb 15.7 gm/dL (13.0-17.5) 01/20/23 12:42 Hct 47.6 % (39.0-53.0) 01/20/23 12:42 MCV 91.3 fL (80.0-100.0) 01/20/23 12:42 MCH 30.2 pg (25.0-35.0) 01/20/23 12:42 MCHC 33.1 g/dL (31.0-37.0) 01/20/23 12:42 RDW 12.4 % (11.5-15.5) 01/20/23 12:42 Plt Count 203 k/uL (150-450) 01/20/23 12:42 MPV 8.2 01/20/23 12:42 Neutrophils % 70 % 01/20/23 12:42 Lymphocytes % 17 % 01/20/23 12:42 Monocytes % 10 % 01/20/23 12:42 Eosinophils % 2 % 01/20/23 12:42 Basophils % 1 % 01/20/23 12:42 Neutrophils # 6.9 k/uL (1.3-7.7) 01/20/23 12:42 Lymphocytes # 1.6 k/uL (1.0-4.8) 01/20/23 12:42 Monocytes # 0.9 k/uL (0-1.0) 01/20/23 12:42 Eosinophils # 0.2 k/uL (0-0.7) 01/20/23 12:42 Basophils # 0.0 k/uL (0-0.2) 01/20/23 12:42 Sodium 136 mmol/L (137-145) L 01/18/23 16:07 Potassium 3.7 mmol/L (3.5-5.1) 01/18/23 16:07 Chloride 104 mmol/L (98-107) 01/18/23 16:07 Carbon Dioxide 22 mmol/L (22-30) 01/18/23 16:07 Anion Gap 10 mmol/L 01/18/23 16:07 BUN 11 mg/dL (9-20) 01/18/23 16:07 Creatinine 0.92 mg/dL (0.66-1.25) 01/18/23 16:07 Est GFR (CKD-EPI)AfAm >90 (>60 ml/min/1.73 sqM) 01/18/23 16:07 Est GFR (CKD-EPI)NonAf 89 (>60 ml/min/1.73 sqM) 01/18/23 16:07 Glucose 109 mg/dL (74-99) H 01/18/23 16:07 Calcium 8.6 mg/dL (8.4-10.2) 01/18/23 16:07 Urine Color Light Yellow 01/19/23 04:08 Urine Appearance Clear (Clear) 01/19/23 04:08 Urine pH 6.0 (5.0-8.0) 01/19/23 04:08 Ur Specific [place] 1.015 (1.001-1.035) 01/19/23 04:08 Urine Protein Negative (Negative) 01/19/23 04:08 Urine Glucose (UA) Negative (Negative) 01/19/23 04:08 Urine Ketones Negative (Negative) 01/19/23 04:08 Urine Blood Negative (Negative) 01/19/23 04:08 Urine Nitrite Negative (Negative) 01/19/23 04:08 Urine Bilirubin Negative (Negative) 01/19/23 04:08 Urine Urobilinogen <2.0 mg/dL (<2.0) 01/19/23 04:08 Ur Leukocyte Esterase Negative (Negative) 01/19/23 04:08 Urine Opiates Screen Not Detected (NotDetected) 01/18/23 09:00 Ur Oxycodone Screen Not Detected (NotDetected) 01/18/23 09:00 Urine Methadone Screen Not Detected (NotDetected) 01/18/23 09:00 Ur Propoxyphene Screen Not Detected (NotDetected) 01/18/23 09:00 Ur Barbiturates Screen Not Detected (NotDetected) 01/18/23 09:00 U Tricyclic Antidepress Not Detected (NotDetected) 01/18/23 09:00 Ur Phencyclidine Scrn Not Detected (NotDetected) 01/18/23 09:00 Ur Amphetamines Screen Not Detected (NotDetected) 01/18/23 09:00 U Methamphetamines Scrn Not Detected (NotDetected) 01/18/23 09:00 U Benzodiazepines Scrn Detected (NotDetected) H 01/18/23 09:00 Urine Cocaine Screen Not Detected (NotDetected) 01/18/23 09:00 U Marijuana (THC) Screen Not Detected (NotDetected) 01/18/23 09:00 Influenza Type A (PCR) Not Detected (Not Detectd) 01/18/23 17:57 Influenza Type B (PCR) Not Detected (Not Detectd) 01/18/23 17:57 RSV (PCR) Not Detected (Not Detectd) 01/18/23 17:57 SARS-CoV-2 (PCR) Not Detected (Not Detectd) 01/18/23 17:57 01/20/23 13:34 IDENTIFYING DATA: Patient is a 62 yo male, currently living with his ex- in a house, he has 1 daughter and another kid who does not live with him. 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 HPI: Patient presented to the hospital on 01/18, for anxiety depression and suicidal ideations with multiple plans. The patient was also complaining of having frequent panic attacks. Patient's urine drug positive for benzodiazepines. Patient was seen today on the unit agreeable lead technical writer. He is fairly concrete, constricted in his affect, he minimized his need for medications and also hospitalization however was somewhat cooperative. He claims that he has been having panic attacks regularly, states it is difficult FOR THE PAST MONTH OR SO. HE STATES THAT HE WENT TO [place] TO VISIT HIS BROTHER AND CLAIMS THAT THAT SOME OF HER STARTED. HE CLAIMS THAT IT HAS BEEN MAKING HIM FEEL SICK AT TIMES, STATES THAT HE HAS HAD. Different medical test on which did not show anything wrong. States that he was not able to eat previously. He claims that he is taking Lexapro and also Ativan however states that he does not want to get addicted to Ativan and stopped taking it. States that the panic attacks last about 5-10 minutes. States that he used to have horrible thoughts afterwards but did not describe what it was. He states that he isn't having depression recently, also endorsing some anxiety. He claims that he was having suicidal thoughts before coming in the hospital now states that they are doing a bit better, do not not endorsing any plan. He claims that he is feeling stressed about being close to [facility]. Claims that he has no plan afterwards. States that his daughter was moving out and his ex- once to move out as well. At this time is denying any homicidal ideations. At this time patient denies any auditory or visual hallucinations. Patient denies any flight of ideas racing thoughts and increased in goal directed behavior. Patient admits to using cigarettes daily, denies any other recreational drug use. PAST PSYCHIATRIC HISTORY: Patient states that has history of depression and anxiety with panic attacks. He claims that he used to be on Celexa, trazodone and also Zoloft in the past. Now apparently he is taking Lexapro and Ativan. Patient denies any previous psychiatric hospitalizations. Patient denies any psychiatric outpatient follow-up. Patient denies any history of suicide attempts in the past. Past Medical History: Hypertension Additional Past Medical History / Comment(s): hx colon polyps,bronchitis Dec 2021,steroids Dec 2021 History of Any Multi-Drug Resistant Organisms: None Reported Past Surgical History: Orthopedic Surgery Additional Past Surgical History / Comment(s): RT HEEL SX AGE 18 Past Anesthesia/Blood Transfusion Reactions: No Reported Reaction Past Psychological History: Anxiety, Depression Smoking Status: Current every day smoker Past Alcohol Use History: None Reported Past Drug Use History: None Reported ALLERGIES: as per EMR CHEMICAL DEPENDENCY HISTORY: as per HPI FAMILY PSYCHIATRIC/SUBSTANCE USE HISTORY: denies SOCIAL HISTORY: Patient was born and raised in [facility]. He states that he completed high school. States that he is currently living with his ex- , his 1 daughter who is 20 years old. States that he has 1 other kid he does not live with. 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 Denies any legal history. MENTAL STATUS EXAM: General Appearance: Patient appears to be overweight, wearing glasses, stated age is alert, minimizing at times, directable. Patient appears to have poor hygiene and grooming. Behavior: Patient is seated without any agitated behavior. Constricted, depressed Speech: Patient's speech is fluent and nonpressured. Soft tone. [place] Mood/Affect: Patient reports their mood is depressed and anxious, affect is congruent and constricted. Suicidality/Homicidality: Patient denies having any homicidal ideation intent or plan. Denies any suicidal ideations intent or plan Perceptions: Patient denies any visual hallucinations and denies any auditory hallucinations Though content/process: There is no evidence of any delusional thought content and thought process is linear and goal-directed. Minimizing his symptoms and need for hospitalization Memory and concentration: AOX3, grossly intact for the purposes of this session. Can spell "WORLD" backwards Judgment and insight: poor STRENGTHS/WEAKNESSES: strength is that patient is resilient. Weakness is that patient has poor judgment and is impulsive INTELLECT: average IMPRESSIONS: Depressive disorder NOS panic disorder nicotine dependence PLAN: -Patient is admitted under voluntary status to MHU for stabilization of psychiatric symptoms and safety. Patient has signed adult voluntary form and medication consent and is placed in patient's chart. -Medications : Increased Lexapro to 20 mg daily for mood/anxiety, trazodone 50 mg daily at bedtime for mood/insomnia. -Ativan and Haldol PRN for agitation/aggression -Patient was informed of the risks, benefits and side effects of the medication and patient verbally consented to taking the medications. Patient signed med consent form and was placed in chart. -Internal Medicine consult to perform medical evaluation and physical. -NRT - nicotine patch -SW on board for discharge planning. Encourage patient to participate in groups to work on coping skills. 01/20/23 14:25
[2023-01-20 13:57] LABS: Glucose,Whole Blood 142 mg/dL (70-110)
[2023-01-20 17:54] LABS: Glucose,Whole Blood 88 mg/dL (70-110)
--- NOTE | 2023-01-20 20:07 | P.CONS ---
History of Present Illness - Reason for Consult Consult date: 01/20/23 Medical management Requesting physician: Zuhair Sarmiento - Chief Complaint Depressed - History of Present Illness This is a 62-year-old patient, follows with Dr. Davila. Chronic stable medical conditions include hypertension, obstructive sleep apnea, nicotine dependence/sm oker. Patient presented to the ER with anxiety depression and suicidal thoughts. And having panic attacks. Symptoms have been coming on for about a week. He made some different plans. He did not actually tried to commit suicide. Patient is living with his ex- and was about 3 years ago. He has a daughter. 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 Sleep is decreased. Oral intake had decreased.. Has lost about 8 pounds. Review of systems: GEN.: None EYES: None HEENT: None NECK: None RESPIRATORY: None CARDIOVASCULAR: None GASTROINTESTINAL: None GENITOURINARY: None MUSCULOSKELETAL: None LYMPHATICS: None HEMATOLOGICAL: None PSYCHIATRY: As above NEUROLOGICAL: None Past medical history to include: Hypertension, obstructive sleep apnea uses CPAP, anxiety depression, Social history: Was 3 years ago. Lives with his ex- and his daughter. Smokes a pack a day for close to 40 years. 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 Denies excessive alcohol intake. Physical examination: VITAL SIGNS: 97.9, 62, 18, 124/77, 97% room air GENERAL: BMI 33.5, sitting up a chair awake. EYES: Pupils equal. Conjunctiva normal. HEENT: External appearance of nose and ears normal, oral cavity grossly normal. NECK: JVD not raised; masses not palpable. HEART: First and second heart sounds are normal; no edema. LUNGS: Respiratory rate normal; clear to auscultation. ABDOMEN: Soft, nontender, liver spleen not palpable, no masses palpable. PSYCH: Alert and oriented x3; mood and affect a bit lowl. MUSCULOSKELETAL:No Clubbing/cyanosis;muscles-grossly intact NEUROLOGICAL: Cranial nerves grossly intact; no facial asymmetry, power and sensation grossly intact. LYMPHATICS: No lymph nodes palpable in the axilla and neck INVESTIGATIONS, reviewed in the clinical context: White count 9.9 hemoglobin 15.7 platelets 23 sodium 138 potassium 4.2 creatinine 1.02 blood glucose 49 TSH 2.2 UA: Negative Assessment and plan: -Essential hypertension olmesartan 40 mg a day -Obesity BMI 33.5 Weight loss measures -Chronic nicotine dependence, cigarette smoker Nicotine patch -Insomnia secondary to depression Has been started on trazodone -Depression with panic disorder Medications per psychiatry Discussed with patient. Thank you Dr. Sarmiento Past Medical History Past Medical History: Hypertension, Sleep Apnea/CPAP/BIPAP Additional Past Medical History / Comment(s): hx colon polyps,bronchitis Dec 2021,steroids Dec 2021 History of Any Multi-Drug Resistant Organisms: None Reported Past Surgical History: Orthopedic Surgery Additional Past Surgical History / Comment(s): RT HEEL SX AGE 18 Past Anesthesia/Blood Transfusion Reactions: No Reported Reaction Smoking Status: Current every day smoker - Past Family History Sister(s) Family Medical History: Cancer Additional Family Medical History / Comment(s): COLON Mother Family Medical History: Cancer Additional Family Medical History / Comment(s): THROAT Medications and Allergies Home Medications Medication Instructions Recorded Confirmed Type Olmesartan Medoxomil 40 mg PO QAM 01/20/22 01/18/23 History Escitalopram [Lexapro] 10 mg PO DAILY 01/18/23 01/18/23 History LORazepam [Ativan] 0.5 - 1 mg PO DAILY PRN 01/18/23 01/18/23 History Allergies Allergy/AdvReac Type Severity Reaction Status Date / Time No Known Allergies Allergy Verified 01/18/23 11:30 Physical Exam Vitals: Vital Signs Temp Pulse Pulse Resp BP BP Pulse Ox 01/20/23 07:49 84 122/83 01/20/23 06:50 97.9 F 62 18 124/77 97 01/19/23 17:40 98.1 F 59 L 18 128/78 97 01/19/23 12:00 98.2 F 75 18 115/76 95 Intake and Output 01/19/23 01/20/23 01/20/23 22:59 06:59 14:59 Other: Weight 96.933 kg Results CBC & Chem 7: 01/20/23 12:42 01/20/23 12:42
[2023-01-20] MEDS: traZODone HCL 50 MG TAB PO SCH (20:33)
[2023-01-20] MEDS: NICOTINE 21MG/24HR PATCH TRANSDERM SCH (20:34)
[2023-01-21 02:04] LABS: Chol/HDL Ratio 3.68 Ratio; LDL Cholesterol,Calculated 101.4 mg/dL (0.0-131.0)
[2023-01-21] MEDS: NICOTINE 21MG/24HR PATCH TRANSDERM SCH (07:48)
[2023-01-21] MEDS ORDERED: ESCITALOPRAM 20 MG TAB PO SCH (09:00)
[2023-01-21] MEDS: LOSARTAN 50 MG TAB PO SCH (11:13)
[2023-01-21] MEDS ORDERED: clonazePAM 1 MG TAB PO PRN (11:43)
--- NOTE | 2023-01-21 11:48 | P.PN ---
Progress Note - Text Progress Note Date: 01/21/23 Interval history: Patient was seen today wandering the hallways and was agreeable to speak to wr cam in the office. he continues to speak softyl, concrete, minimizing his symptoms however is stating that he is feeling fairlyu anxious at this time. he states that he is still depressed, states that he beleives he is not tolerating the lexapro well and was requesting to have it changed. We spoke about the advantages of switching to Effexor and patient was agreeable to this. Also will add Vistaril during the day. He claims that he was able to sleep better last night. Claims that he had a panic attack yesterday and noticed that his blood pressure and heart rate was low. He states that his appetite is fair at this time. He continues to minimize his need for being in the hospital and requesting discharge. The symptoms denying any suicidal or homicidal ideations or plan. Denying auditory or visual hallucinations. MENTAL STATUS EXAM: General Appearance: Patient appears to be overweight, wearing glasses, stated age is alert, minimizing at times, directable. Patient appears to have improving hygiene and grooming. Behavior: Patient is seated without any agitated behavior. Constricted, depressed Speech: Patient's speech is fluent and nonpressured. Soft tone. [place] Mood/Affect: Patient reports their mood is depressed and anxious, affect is congruent and constricted. Suicidality/Homicidality: Patient denies having any homicidal ideation intent or plan. Denies any suicidal ideations intent or plan Perceptions: Patient denies any visual hallucinations and denies any auditory hallucinations Though content/process: There is no evidence of any delusional thought content and thought process is linear. Minimizing his symptoms and need for hospitalization. Focused on discharge Memory and concentration: AOX3, grossly intact for the purposes of this session Judgment and insight: poor, improving mildly IMPRESSIONS: Depressive disorder NOS panic disorder nicotine dependence PLAN: -Patient is admitted under voluntary status to MHU for stabilization of psychiatric symptoms and safety. Patient has signed adult voluntary form and medication consent and is placed in patient's chart. -Medications : d/c Lexapro due to intolerance and replace with effexor xr 37.5 mg daily for mood/anxiety, trazodone 50 mg daily at bedtime for mood/insomnia. added vistaril 25 mg bid for anxiety. -clonazepam and Haldol PRN for agitation/aggression -NRT - nicotine patch -SW on board for discharge planning. Encourage patient to participate in groups to work on coping skills.
[2023-01-21] MEDS: hydrOXYzine pamoate 25 MG CAP PO SCH ×2 (12:36→21:04)
[2023-01-21] MEDS: traZODone HCL 50 MG TAB PO SCH (21:04)
[2023-01-22] MEDS: NICOTINE 21MG/24HR PATCH TRANSDERM SCH (08:00)
[2023-01-22] MEDS: hydrOXYzine pamoate 25 MG CAP PO SCH ×2 (08:01→20:48)
[2023-01-22] MEDS: LOSARTAN 50 MG TAB PO SCH (08:01)
[2023-01-22] MEDS ORDERED: VENLAFAXINE HCL ER 37.5 MG CAP PO SCH (09:00)
--- NOTE | 2023-01-22 14:54 | P.PN ---
Progress Note - Text Progress Note Date: 01/22/23 Interval history: Patient was seen today wandering the hallways and was also participating in [facility] and was agreeable to speak to curriculum writer in the office. he continues to speak softyl, concrete. He states that he is doing a bit better today with regard to his anxiety and also his mood. Claims that he did not have any anxiety attacks today. He states that he feels medications have started working. He claims that he is feeling bloated at times and feeling like he has "gas in my stomach". He denies any acid reflux symptoms. We spoke about trying simethicone choose which is okay with. Claims that he has been trying to "regroup some perspective this as he can. He remains fairly focused on discharge. Insight and judgment have been mildly improving. He states that his appetite is fair at this time. denying any suicidal or homicidal ideations or plan. Denying auditory or visual hallucinations. MENTAL STATUS EXAM: General Appearance: Patient appears to be overweight, wearing glasses, stated age is alert, minimizing at times, directable. Patient appears to have improving hygiene and grooming. Behavior: Patient is seated without any agitated behavior. Constricted, improving mildly Speech: Patient's speech is fluent and nonpressured. Soft tone. [place], improving Mood/Affect: Patient reports their mood is improving mildly, affect is congruent and constricted. Suicidality/Homicidality: Patient denies having any homicidal ideation intent or plan. Denies any suicidal ideations intent or plan Perceptions: Patient denies any visual hallucinations and denies any auditory hallucinations Though content/process: There is no evidence of any delusional thought content and thought process is linear. His focus on discharge Memory and concentration: AOX3, grossly intact for the purposes of this session Judgment and insight: improving mildly IMPRESSIONS: Depressive disorder NOS panic disorder nicotine dependence PLAN: -Patient is admitted under voluntary status to MHU for stabilization of psychiatric symptoms and safety. Patient has signed adult voluntary form and medication consent and is placed in patient's chart. -Medications : increase effexor xr 75 mg daily for mood/anxiety, trazodone 50 mg daily at bedtime for mood/insomnia. vistaril 25 mg bid for anxiety. added mylicon chews QID for bloating. -clonazepam and Haldol PRN for agitation/aggression -NRT - nicotine patch -SW on board for discharge planning. Encourage patient to participate in groups to work on coping skills. likely discharge wednesday if patient is doing well.
[2023-01-22] MEDS: SIMETHICONE 80 MG CHEWABLE PO SCH ×3 (15:17→20:50)
[2023-01-22] MEDS: MAG HYDROX/AL HYDROX/SIMETH 30 ML CUP PO PRN (18:24)
[2023-01-22] MEDS: traZODone HCL 50 MG TAB PO SCH (20:49)
[2023-01-23] MEDS: NICOTINE 21MG/24HR PATCH TRANSDERM SCH (08:52)
[2023-01-23] MEDS: SIMETHICONE 80 MG CHEWABLE PO SCH (08:53)
[2023-01-23] MEDS: hydrOXYzine pamoate 25 MG CAP PO SCH ×2 (08:54→20:44)
[2023-01-23] MEDS: VENLAFAXINE HCL ER 75 MG CAP PO SCH (08:54)
[2023-01-23] MEDS: MAG HYDROX/AL HYDROX/SIMETH 30 ML CUP PO PRN (08:54)
[2023-01-23] MEDS: LOSARTAN 50 MG TAB PO SCH (08:54)
--- NOTE | 2023-01-23 09:41 | P.PN ---
Subjective Progress Note Date: 01/23/23 Principal diagnosis: IMPRESSIONS: Depressive disorder NOS panic disorder nicotine dependence Interval history: Patient was seen today wandering the hallways and was also participating in group and was agreeable to speak to loan underwriter in the office. he continues to speak softly but is vague and concrete. He states that he is doing a bit better today with regard to his anxiety but has to take some vistaril 25mg and also his mood. Claims that he did not have any anxiety attacks today. He states that he feels the increase in the Effexor has started working. He claims that he is feeling bloated at times and feeling like he has "gas in my stomach". He says even thinking about eating seems to stir up his stomach and she doesn't need he feels bad and if he does easy feels. Denies any diarrhea or loose stools or constipation. Because he knows he needs to. He is denying any suicidal or homicidal ideations or plan. Denying auditory or visual hallucinations. MENTAL STATUS EXAM: General Appearance: Patient appears to be overweight, wearing glasses, stated age is alert, minimizing at times, directable. Patient appears to have improving hygiene and grooming. Behavior: Patient is seated without any agitated behavior. Constricted, improving mildly Speech: Patient's speech is fluent and nonpressured. Soft tone. [place], improving Mood/Affect: Patient reports their mood is improving mildly, serious and somewhat anxious Suicidality/Homicidality: Patient denies having any homicidal ideation intent or plan. Denies any suicidal ideations intent or plan Perceptions: Patient denies any visual hallucinations and denies any auditory hallucinations Though content/process: There is no evidence of any delusional thought content and thought process is linear. His focus on discharge Memory and concentration: AOX3, grossly intact for the purposes of this session Judgment and insight: improving mildly IMPRESSIONS: Depressive disorder NOS panic disorder nicotine dependence PLAN: I told him if the Vistaril did not last long enough or didn't give him enough relief he should let me know otherwise relieve the medicine worked at as he seems to be starting to get some benefit -Patient is admitted under voluntary status to MHU for stabilization of psychiatric symptoms and safety. Patient has signed adult voluntary form and medication consent and is placed in patient's chart. -Medications : increase effexor xr 75 mg daily for mood/anxiety, trazodone 50 mg daily at bedtime for mood/insomnia he says that he did sleep well last night. vistaril 25 mg bid for anxiety. added mylicon chews QID for bloating. -clonazepam and Haldol PRN for agitation/aggression -NRT - nicotine patch -SW on board for discharge planning. Encourage patient to participate in groups to work on coping skills. likely discharge wednesday if patient is doing well. Objective - Vital Signs Vital signs: Vital Signs Temp 97.2 F L 01/22/23 06:40 Pulse 82 01/23/23 09:03 Resp 13 01/22/23 06:40 BP 108/69 01/23/23 09:03 Pulse Ox 99 01/21/23 07:04 FiO2 - Labs CBC & Chem 7: 01/20/23 12:42 01/20/23 12:42
[2023-01-23 10:26] VITALS: RESP 16; TEMP 98.4
[2023-01-23] MEDS: traZODone HCL 50 MG TAB PO SCH (20:44)
[2023-01-24] MEDS: hydrOXYzine pamoate 25 MG CAP PO SCH ×4 (08:23→18:43)
[2023-01-24] MEDS: NICOTINE 21MG/24HR PATCH TRANSDERM SCH (08:23)
[2023-01-24] MEDS: SIMETHICONE 80 MG CHEWABLE PO SCH ×4 (08:23→20:47)
[2023-01-24] MEDS: LOSARTAN 50 MG TAB PO SCH (08:23)
[2023-01-24] MEDS: VENLAFAXINE HCL ER 75 MG CAP PO SCH (08:23)
[2023-01-24 08:40] VITALS: PULSE 87
--- NOTE | 2023-01-24 09:22 | P.PN ---
Subjective Progress Note Date: 01/24/23 Principal diagnosis: IMPRESSIONS: Depressive disorder NOS panic disorder nicotine dependence Interval history: Patient was seen today wandering the hallways and was also participating in group and was agreeable to speak to narrative writer in the office. He continues to speak softly but is vague and concrete. He states that he is doing a bit better today with regard to his anxiety but has to take some vistaril 25mg and also his mood. Claims that he did not have any anxiety attacks today. He states that he feels the increase in the Effexor has started working. He claims that he is feeling bloated at times and feeling like he has "gas in my stomach". He says even thinking about eating seems to stir up his stomach. Denies any diarrhea or loose stools or constipation, just a lot of gas. He is denying any suicidal or homicidal ideations or plan. Denying auditory or visual hallucinations. He says that he is not normally an anxious person but has been struggling with his anxiety for 40 or 50 days and wanted to know if that was something really strange or unusual. His been taking Vistaril in the morning and later in the day. He does get a little anxious in between so I am going to increase to 3 times a day. MENTAL STATUS EXAM: General Appearance: Patient appears to be overweight, wearing glasses, stated age is alert, minimizing at times, directable. Patient appears to have improving hygiene and grooming. Behavior: Patient is seated without any agitated behavior. Speech: Patient's speech is fluent and nonpressured. Soft tone. [place] Mood/Affect: Patient reports their mood is improving mildly, serious and somewhat anxious affect. Suicidality/Homicidality: Patient denies having any homicidal ideation intent or plan. Denies any suicidal ideations intent or plan Perceptions: Patient denies any visual hallucinations and denies any auditory hallucinations Though content/process: There is no evidence of any delusional thought content and thought process is linear. His focus on discharge Memory and concentration: AOX3, grossly intact for the purposes of this session Judgment and insight: improving mildly, however he did not seem to want to dis cuss what he might be doing that could cause him to be burned out her anxious what he needs to do to be healthier in regards to anxiety. He basically seems to feel he does not normally an anxious person and has no idea what happened to him and therefore can't see why he needs to change anything in order to do better. IMPRESSIONS: Depressive disorder NOS panic disorder nicotine dependence PLAN: We will bump up the Vistaril to 3 times a day he seems to think that the Effexor might be causing him to have gas. We'll have him talk to internal medicine about maybe something for the gas. -Patient is admitted under voluntary status to MHU for stabilization of psychiatric symptoms and safety. Patient has signed adult voluntary form and medication consent and is placed in patient's chart. -Medications : increase effexor xr 75 mg daily for mood/anxiety, trazodone 50 mg daily at bedtime for mood/insomnia he says that he did sleep well last night. vistaril 25 mg bid for anxiety. added mylicon chews QID for bloating. -clonazepam and Haldol PRN for agitation/aggression -NRT - nicotine patch -SW on board for discharge planning. Encourage patient to participate in groups to work on coping skills. likely discharge wednesday if patient is doing well. Objective - Vital Signs Vital signs: Vital Signs Temp 98.4 F 01/23/23 10:13 Pulse 87 01/24/23 08:32 Resp 16 01/23/23 10:13 BP 137/73 01/24/23 08:32 Pulse Ox 95 01/23/23 10:13 FiO2 - Labs CBC & Chem 7: 01/20/23 12:42 01/20/23 12:42
[2023-01-24] MEDS: traZODone HCL 50 MG TAB PO SCH (20:47)
[2023-01-25] MEDS: LOSARTAN 50 MG TAB PO SCH (08:30)
[2023-01-25] MEDS: SIMETHICONE 80 MG CHEWABLE PO SCH (08:30)
[2023-01-25] MEDS: VENLAFAXINE HCL ER 75 MG CAP PO SCH (08:30)
[2023-01-25] MEDS: NICOTINE 21MG/24HR PATCH TRANSDERM SCH (08:31)
[2023-01-25 08:36] VITALS: BP 112/68
--- NOTE | 2023-01-25 10:15 | P.DS ---
Providers Date of admission: 01/19/23 16:22 Expected date of discharge: 01/25/23 Attending physician: Zuhair Sarmiento MD Consults: 01/19/23 16:52 Consult Physician Routine Consulting Provider: Anthony Taylor Consult Reason/Comments: H&P and medical Do you want consulting provider notified?: Yes Primary care physician: Zuhair Davila - Discharge Diagnosis(es) (1) Depressive disorder Current Visit: Yes Status: Acute Priority: High (2) Panic disorder Current Visit: Yes Status: Acute Priority: High (3) Nicotine dependence Current Visit: Yes Status: Acute Priority: Low Hospital Course: Admission HPI: Admission note was completed by leader writer "Patient is a 62 yo male, cu rrently living with his ex- in a house, he has 1 daughter and another kid who does not live with him. 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 Patient presented to the hospital on 01/18, for anxiety depression and suicidal ideations with multiple plans. The patient was also complaining of having frequent panic attacks. Patient's urine drug positive for benzodiazepines. Patient was seen today on the unit agreeable speech scientist. He is fairly concrete, constricted in his affect, he minimized his need for medications and also hospitalization however was somewhat cooperative. He claims that he has been having panic attacks regularly, states it is difficult FOR THE PAST MONTH OR SO. HE STATES THAT HE WENT TO [place] TO VISIT HIS BROTHER AND CLAIMS THAT THAT SOME OF HER STARTED. HE CLAIMS THAT IT HAS BEEN MAKING HIM FEEL SICK AT TIMES, STATES THAT HE HAS HAD. Different medical test on which did not show anything wrong. States that he was not able to eat previously. He claims that he is taking Lexapro and also Ativan however states that he does not want to get addicted to Ativan and stopped taking it. States that the panic attacks last about 5-10 minutes. States that he used to have horrible thoughts afterwards but did not describe what it was. He states that he isn't having depression recently, also endorsing some anxiety. He claims that he was having suicidal thoughts before coming in the hospital now states that they are doing a bit better, do not not endorsing any plan. He claims that he is feeling stressed about being close to assisted. Claims that he has no plan afterwards. States that his daughter was moving out and his ex- once to move out as well. At this time is denying any homicidal ideations. At this time patient denies any auditory or visual hallucinations. Patient denies any flight of ideas racing thoughts and increased in goal directed behavior. Patient admits to using cigarettes daily, denies any other recreational drug use." Hospital course: Upon admission to the unit patient was directable and agreeable to commence treatment and signed adult voluntary form . Patient was initially fairly isolative however with treatment and eventually got along well with other patients on the unit and followed unit protocol. Patient was compliant with the medications and denied any side effects throughout hospital course. Patient was started on Effexor XR increased to dose of 75 mg daily for mood/anxiety, trazodone 50 mg daily at bedtime for mood/insomnia, Vistaril 25 mg 3 times a day for anxiety. Patient spoke of his stressors and engaged in therapy both group and individual. Patient was also seen by medical team for history and physical exam. Throughout the course of the hospitalization patient gradually improved with regards to mood, anxiety, panic attacks, sleep and became more future oriented with improved insight and judgment. On the day of discharge patient denied any suicidal or homicidal ideations intent or plan denied any auditory or visual hallucinations. Patient endorsed wanting to live for his family and his job. The patient denied any access to guns or weapons. Patient denied any paranoia and did not endorse any delusions. Patient does not have a significant history of substance abuse and was counseled on abstaining from all substances including alcohol and marijuana. Patient was also counseled on the medications and need for regular compliance and was encouraged to follow-up with their outpatient appointment for mental health and also for primary care. Prior to discharge a family meeting will be arranged by 7th grade social studies teacher to answer any questions and ensure safety upon discharge. Mental status exam: General Appearance: Patient appears to be mildly overweight, stated age is alert, pleasant, and cooperative. Patient is in no acute distress and has improved hygiene and grooming Behavior: Patient is calmly seated without any agitated behavior. Speech: Patient's speech is fluent and nonpressured. Mood/Affect: Patient reports their mood is "good", affect is congruent Suicidality/Homicidality: Patient denies having any suicidal or homicidal ideation intent or plan. Perceptions: Patient denies any auditory or visual hallucinations. Though content/process: There is no evidence of any delusional thought content and thought process is linear and goal-directed. more future oriented Memory and concentration: AOX3, grossly intact for the purposes of this session. Can spell "WORLD" backwards correctly. Judgment and insight: improved with guarded prognosis Impression: Depressive disorder unspecified Panic disorder Nicotine dependence Plan: -Continue with discharge today as patient has improved and stabilized psychiatrically and is not currently an imminent threat to himself and/or others -Continue medications: Effexor XR 75 mg daily for mood/anxiety, trazodone 50 mg daily at bedtime for insomnia/mood, Vistaril 25 mg 3 times a day for anxiety -Patient was counseled on the need for medication compliance and appropriate follow-up at mental health and also primary care for medical issues. Patient verbalized understanding and agreed. -Social work to arrange for and conduct family meeting to ensure safety upon discharge and answer any questions/concerns. Social work also to arrange for patients follow up appointments for psychiatric care along with follow up with primary care provider. -Patient counseled on abstaining from recreational drugs and marijuana and alcohol. Was informed/educated on the adverse effects on their physical and mental health. Patient verbally agreed and understood. -patient denies any access to guns or weapons. -Patient was instructed to return to the hospital or seek immediate medical care if their psychiatric or medical symptoms do worsen or reoccur. Allergies Allergy/AdvReac Type Severity Reaction Status Date / Time No Known Allergies Allergy Verified 01/18/23 11:30 Laboratory Results WBC 9.9 k/uL (3.8-10.6) 01/20/23 12:42 RBC 5.21 m/uL (4.30-5.90) 01/20/23 12:42 Hgb 15.7 gm/dL (13.0-17.5) 01/20/23 12:42 Hct 47.6 % (39.0-53.0) 01/20/23 12:42 MCV 91.3 fL (80.0-100.0) 01/20/23 12:42 MCH 30.2 pg (25.0-35.0) 01/20/23 12:42 MCHC 33.1 g/dL (31.0-37.0) 01/20/23 12:42 RDW 12.4 % (11.5-15.5) 01/20/23 12:42 Plt Count 203 k/uL (150-450) 01/20/23 12:42 MPV 8.2 01/20/23 12:42 Neutrophils % 70 % 01/20/23 12:42 Lymphocytes % 17 % 01/20/23 12:42 Monocytes % 10 % 01/20/23 12:42 Eosinophils % 2 % 01/20/23 12:42 Basophils % 1 % 01/20/23 12:42 Neutrophils # 6.9 k/uL (1.3-7.7) 01/20/23 12:42 Lymphocytes # 1.6 k/uL (1.0-4.8) 01/20/23 12:42 Monocytes # 0.9 k/uL (0-1.0) 01/20/23 12:42 Eosinophils # 0.2 k/uL (0-0.7) 01/20/23 12:42 Basophils # 0.0 k/uL (0-0.2) 01/20/23 12:42 Sodium 138 mmol/L (137-145) 01/20/23 12:42 Potassium 4.2 mmol/L (3.5-5.1) 01/20/23 12:42 Chloride 104 mmol/L (98-107) 01/20/23 12:42 Carbon Dioxide 20 mmol/L (22-30) L 01/20/23 12:42 Anion Gap 14 mmol/L 01/20/23 12:42 BUN 15 mg/dL (9-20) 01/20/23 12:42 Creatinine 1.02 mg/dL (0.66-1.25) 01/20/23 12:42 Est GFR (CKD-EPI)AfAm >90 (>60 ml/min/1.73 sqM) 01/20/23 12:42 Est GFR (CKD-EPI)NonAf 79 (>60 ml/min/1.73 sqM) 01/20/23 12:42 Glucose 49 mg/dL (74-99) L* 01/20/23 12:42 POC Glucose (mg/dL) 88 mg/dL (70-110) 01/20/23 17:51 POC Glu Finish Painter ID Mary Asif 01/20/23 17:[address] Glu mg/dL 117 mg/dL 01/20/23 12:42 Hemoglobin A1c 5.7 % (<=6.0) 01/20/23 12:42 Calcium 9.2 mg/dL (8.4-10.2) 01/20/23 12:42 Total Bilirubin 0.8 mg/dL (0.2-1.3) 01/20/23 12:42 AST 32 U/L (17-59) 01/20/23 12:42 ALT 52 U/L (4-49) H 01/20/23 12:42 Alkaline Phosphatase 80 U/L (38-126) 01/20/23 12:42 Total Protein 6.9 g/dL (6.3-8.2) 01/20/23 12:42 Albumin 4.1 g/dL (3.5-5.0) 01/20/23 12:42 Triglycerides 97.50 mg/dL (0.00-149.00) 01/20/23 12:42 Cholesterol 166.00 mg/dL (0.00-200.00) 01/20/23 12:42 LDL Cholesterol, Calc 101.4 mg/dL (0.0-131.0) 01/20/23 12:42 VLDL Cholesterol, Calc 19.50 mg/dL (5.00-40.00) 01/20/23 12:42 HDL Cholesterol 45.10 mg/dL (40.00-60.00) 01/20/23 12:42 Cholesterol/HDL Ratio 3.68 Ratio 01/20/23 12:42 TSH 2.260 mIU/L (0.465-4.680) 01/20/23 12:42 Urine Color Light Yellow 01/19/23 04:08 Urine Appearance Clear (Clear) 01/19/23 04:08 Urine pH 6.0 (5.0-8.0) 01/19/23 04:08 Ur Specific [place] 1.015 (1.001-1.035) 01/19/23 04:08 Urine Protein Negative (Negative) 01/19/23 04:08 Urine Glucose (UA) Negative (Negative) 01/19/23 04:08 Urine Ketones Negative (Negative) 01/19/23 04:08 Urine Blood Negative (Negative) 01/19/23 04:08 Urine Nitrite Negative (Negative) 01/19/23 04:08 Urine Bilirubin Negative (Negative) 01/19/23 04:08 Urine Urobilinogen <2.0 mg/dL (<2.0) 01/19/23 04:08 Ur Leukocyte Esterase Negative (Negative) 01/19/23 04:08 Urine Opiates Screen Not Detected (NotDetected) 01/18/23 09:00 Ur Oxycodone Screen Not Detected (NotDetected) 01/18/23 09:00 Urine Methadone Screen Not Detected (NotDetected) 01/18/23 09:00 Ur Propoxyphene Screen Not Detected (NotDetected) 01/18/23 09:00 Ur Barbiturates Screen Not Detected (NotDetected) 01/18/23 09:00 U Tricyclic Antidepress Not Detected (NotDetected) 01/18/23 09:00 Ur Phencyclidine Scrn Not Detected (NotDetected) 01/18/23 09:00 Ur Amphetamines Screen Not Detected (NotDetected) 01/18/23 09:00 U Methamphetamines Scrn Not Detected (NotDetected) 01/18/23 09:00 U Benzodiazepines Scrn Detected (NotDetected) H 01/18/23 09:00 Urine Cocaine Screen Not Detected (NotDetected) 01/18/23 09:00 U Marijuana (THC) Screen Not Detected (NotDetected) 01/18/23 09:00 Influenza Type A (PCR) Not Detected (Not Detectd) 01/18/23 17:57 Influenza Type B (PCR) Not Detected (Not Detectd) 01/18/23 17:57 RSV (PCR) Not Detected (Not Detectd) 01/18/23 17:57 SARS-CoV-2 (PCR) Not Detected (Not Detectd) 01/18/23 17:57 Vital Signs Temp 98.4 F 01/23/23 10:13 Pulse 87 01/24/23 08:32 Resp 16 01/23/23 10:13 BP 112/68 01/25/23 08:29 Pulse Ox 95 01/23/23 10:13 FiO2 Patient Condition at Discharge: Stable Plan - Discharge Summary Discharge Rx Participant: Yes New Discharge Prescriptions: New hydrOXYzine pamoate [Vistaril] 25 mg PO TID BETWEEN MEALS 30 Days #90 cap traZODone HCL [Desyrel] 50 mg PO HS 30 Days #30 tab Venlafaxine HCl ER [Effexor XR] 75 mg PO DAILY 30 Days #30 cap Nicotine 21Mg/24Hr Patch [Habitrol] 1 patch TRANSDERM DAILY 14 Days #14 patch Continue Olmesartan Medoxomil 40 mg PO QAM Discontinued LORazepam [Ativan] 0.5 - 1 mg PO DAILY PRN PRN Reason: Anxiety Escitalopram [Lexapro] 10 mg PO DAILY Discharge Medication List Olmesartan Medoxomil 40 mg PO QAM 01/20/22 [History] Nicotine 21Mg/24Hr Patch [Habitrol] 1 patch TRANSDERM DAILY 14 Days #14 patch 01/25/23 [Rx] Venlafaxine HCl ER [Effexor XR] 75 mg PO DAILY 30 Days #30 cap 01/25/23 [Rx] hydrOXYzine pamoate [Vistaril] 25 mg PO TID BETWEEN MEALS 30 Days #90 cap 01/25/23 [Rx] traZODone HCL [Desyrel] 50 mg PO HS 30 Days #30 tab 01/25/23 [Rx] Follow up Appointment(s)/Referral(s): [facility] - 02/02/23 9:30 am (Casi Cook 09:30 paperwork bring id and insurance card 10:00-11:00 appointment) Zuhair Davila DO [Primary Care Provider] - 1-2 days Patient Instructions/Handouts: How to Stop Smoking (DC), Depression (DC), Anxiety (ED) Activity/Diet/Wound Care/Special Instructions: Avoid the use of street drugs and alcohol. Take all medications as prescribed. When you are in need of refills on your medications, please contact your medical provider and/or outpatient psychiatrist/provider to have this done. Please go to your scheduled outpatient appointment for aftercare treatment. If symptoms return or become worse, call the crisis line at and/or go to the nearest emergency room for evaluation. National Suicide Hotline 8. Discharge Disposition: HOME SELF-CARE
== END 2023-01-25 14:23 | disposition home or self-care (01) | DRG 881 ==
LOC: EC 08:26 → 3MHU 01-19 16:22
PROVIDERS: ADMIT Psychiatry & Neurology Psychiatry; ATTEND Psychiatry & Neurology Psychiatry
DX: F32.A Depression, unspecified (principal); R45.851 Suicidal ideations; E03.9 Hypothyroidism, unspecified; Z79.890 Hormone replacement therapy; Z20.822 Contact with and (suspected) exposure to COVID-19; E66.9 Obesity, unspecified; F20.9 Schizophrenia, unspecified; F17.210 Nicotine dependence, cigarettes, uncomplicated; G47.33 Obstructive sleep apnea (adult) (pediatric); I10 Essential (primary) hypertension; Z68.33 Body mass index [BMI] 33.0-33.9, adult; Z71.6 Tobacco abuse counseling; Z87.19 Personal history of other diseases of the digestive system; Z79.899 Other long term (current) drug therapy; Z86.010 Personal history of colon polyps; F51.05 Insomnia due to other mental disorder; Z76.5 Malingerer [conscious simulation]
CPT/HCPCS: 36415; 80048; 80053; 80061; 80306; 81003; 82075; 83036; 84443; 85025; 87636; 99285

== ENCOUNTER 2023-11-03 08:52 | Day surgery (SDC) | payer BC ==
[2023-11-03] MEDS ORDERED: LACTATED RINGERS 1,000 ML BAG ONE (10:00)
[2023-11-03] MEDS ORDERED: PROPOFOL 10 MG/ML 20 ML VIAL IV ONE (10:03)
== END 2023-11-03 11:33 | disposition home or self-care (01) ==
LOC: ORWHC2ENDO 08:52
PROVIDERS: ATTEND Surgery Plastic and Reconstructive Surgery
DX: K63.5 Polyp of colon (principal); I10 Essential (primary) hypertension; G47.33 Obstructive sleep apnea (adult) (pediatric); F17.210 Nicotine dependence, cigarettes, uncomplicated; Z87.442 Personal history of urinary calculi; Z79.899 Other long term (current) drug therapy
CPT/HCPCS: 45385; 88305